=== PATIENT | male | born 1950 | race Caucasian/White ===

== ENCOUNTER 2018-07-08 15:29 | Observation (INO) ==
[2018-07-08 16:18] LABS: Basophils # (Auto) 0 K/mcL (0.0-0.3); Basophils % (Auto) 0.6 % (0.0-2.0); Eosinophils # (Auto) 0.2 K/mcL (0.0-0.7); Eosinophils % (Auto) 3.3 % (0.0-7.0); Granulocytes % (Auto) 61.9 % (38.0-78.0); Hematocrit 39.4 % (41.0-55.0); Hemoglobin 13.1 g/dL (13.5-16.5); Lymphocytes # (Auto) 1.9 K/mcL (1.5-4.8); Mean Cell Volume 86.3 fL (80.0-100.0); Mean Corpuscular HGB Conc 33.1 g/dL (31.0-36.0); Mean Platelet Volume 7.4 fL (7.4-10.4); Monocytes # (Auto) 0.6 K/mcL (0.1-0.9); Monocytes % (Auto) 8.2 % (1.0-12.0); Platelet Count 310 K/mcL (140-440); RBC 4.57 M/mcL (4.50-5.90); Red Cell Distribution Width 15.7 % (11.5-14.5); WBC 7.4 K/mcL (4.5-11.0)
[2018-07-08 16:37] LABS: ALT/SGPT 9 U/l (0-40); AST/SGOT 12 U/l (0-37); Albumin 3.7 gm/dL (3.2-5.2); Albumin/Globulin Ratio 1.2 (1.0-2.3); Alkaline Phosphatase 116 U/L (39-117); Bilirubin,Total 0.5 mg/dL (0.0-1.0); Blood Urea Nitrogen 10 mg/dl (8-23); Calcium 8.9 mg/dl (8.6-10.4); Carbon Dioxide 27 mmol/L (22-30); Chloride 103 mmol/L (96-108); Globulin 3.2 gm/dL (2.2-3.7); Glomerular Filtration Rate 89; Glucose 103 mg/dL (70-105); Potassium 3.7 mmol/L (3.3-5.1); Sodium 140 mmol/L (133-145)
[2018-07-08 16:57] LABS: Erythrocyte Sedimentation Rate 30 mm/hr (0-15)
[2018-07-08] MEDS ORDERED: HYDROcodone/APAP 10/325MG TABLET PO ONE ×2 (17:09→17:26)
--- NOTE | 2018-07-08 18:47 | Emergency Department Note ---
Lower Extremity Injury HPI - General Chief Complaint: Extremity Injury, Lower Stated Complaint: Right Eye Pain, RLE Cellulitis Time Seen by Provider: 07/08/18 15:33 Source: patient Mode of arrival: ambulatory Limitations: no limitations - History of Present Illness HPI Narrative: This pleasant rather tall and large 68-year-old gentleman comes e mergency room with his because of concern of a sore on his right heel, possible cellulitis of his right lower extremity. He has been in wound care for a lesion that was excised near the base of his second toe. It had to be opened and then sutures were applied. He has been on some rather significant direct tight bandages which seemed to calm upon removal demonstrate purple and pink skin above the ankle and a new heel lesion. remove the wrap I believe just today. She has been home since after having gone to out of town. Patient describes having numbness of his foot but denies any specific injury or trauma or break of the skin that he is aware of for cause for his heel ulcer. As he was coming here there was a concern of some slurred speech. He also describes some pain in his right cheek radiating to behind his right eye. There is been no fevers or sweats but some mild chills. REVIEW OF SYSTEMS: Denies chest pain Denies cough, shortness of breath No abdominal pain, nausea, vomiting, diarrhea. Some constipation. No dysuria. Has had some dribbling. Some incontinence. No back pain No headaches, weakness, dizziness No anxiety but has had some depression admittedly and related to his health including his below-knee amputation on the left. - Related Data Home Medications Medication Instructions Recorded Confirmed bupropion HCl XL 150 mg 24 hr 150 mg PO BID tab 08/03/14 05/31/18 tablet, extended release hydrocodone-acetaminophen 10 - 325 mg PO PRN PRN 08/03/14 05/31/18 multivitamins 1 tab PO QDAY 08/03/14 05/31/18 simvastatin 10 mg tablet 10 mg PO HS tab 08/03/14 05/31/18 etodolac 400 mg tablet 400 mg PO BID 08/02/15 05/31/18 ipratropium bromide 0.03 % nasal 2 spray INTRANASAL BID-TID PRN 08/02/15 05/31/18 spray metoprolol tartrate 25 mg tablet 12.5 mg PO DAILY tab 08/02/15 05/31/18 potassium chloride ER 10 mEq 20 meq PO BID cap 08/02/15 05/31/18 capsule,extended release Gabapentin [Neurontin] 300 mg PO TID 02/02/16 05/31/18 cholecalciferol (vitamin D3) 50,000 unit PO .2XW tab 02/02/16 05/31/18 50,000 unit tablet fish, borage, flaxseed oils-omega 1 cap PO BID cap 02/02/16 05/31/18 3,6,9 comb no.1 1,200 mg capsule furosemide 80 mg tablet 160 mg PO BID tab 02/02/16 05/31/18 ofloxacin 0.3 % eye drops 2 drp OPHTHALMIC QID 7 Days #5 ml 02/02/16 05/31/18 tizanidine 4 mg capsule 4 mg PO BID cap 02/02/16 05/31/18 aspirin 325 mg tablet 325 mg PO DAILY 03/28/17 05/31/18 pramipexole 0.125 mg tablet 0.125 mg PO .daily tab 04/01/18 05/31/18 pramipexole 0.5 mg tablet 0.5 mg PO QHS 04/01/18 05/31/18 DULoxetine [Cymbalta] 30 mg PO DAILY 05/28/18 05/31/18 Finasteride [Proscar] 5 mg PO DAILY 05/28/18 05/31/18 Metolazone [Zaroxolyn] 2.5 mg PO DAILY 05/28/18 05/31/18 Tamsulosin HCl [Flomax] 0.8 mg PO DAILY 05/28/18 05/31/18 Previous Rx's Medication Instructions Recorded oxybutynin chloride ER 15 mg 15 mg PO BID #60 tab 04/01/18 tablet,extended release 24 hr Allergies Allergy/AdvReac Type Severity Reaction Status Date / Time Cefprozil [From Cefzil] AdvReac Mild Diarrhea Verified 05/30/18 10:32 pregabalin [From Lyrica] AdvReac Mild swelling Verified 05/28/18 16:02 of hands and feet sertraline [From Zoloft] AdvReac Mild swelling Verified 05/28/18 16:02 of hands and feet Past Medical History - Past Medical History PMFSH Narrative: Medical History (Last Updated 07/08/18 @ 18:51 by Keo Jose DO) Dysmetabolic syndrome X (Chronic) Multiple sclerosis (Chronic) Hyperlipidemia (Chronic) Urge incontinence (Chronic) Ureteral calculus (Resolved) Tabes dorsalis (Chronic) Osteoarthrosis (Chronic) Neuropathy (Chronic) Neurogenic bladder (Chronic) Kidney stones (Chronic) Hearing loss (Chronic) Cannabis abuse (Chronic) BPH without obstruction/lower urinary tract symptoms (Chronic) Hemorrhoids, internal (Resolved) Lipoma of skin and subcutaneous tissue of face (Resolved) Nocturia (Resolved) Shortness of breath (Resolved) Skin benign neoplasm (Resolved) Past Surgical History (Last Updated 07/08/18 @ 18:55 by Keo Jose DO) History of below knee amputation (Acute) Hx of cataract surgery (Acute) History of foot surgery (Resolved) History of hip surgery (Resolved) Hx of adenoidectomy (Resolved) Hx of colonoscopy (Resolved) Hx of knee surgery (Resolved) Hx of tonsillectomy (Resolved) Family History (Last Reviewed 04/01/18 @ 13:24 by Shannan Linn RN) father Secondary malignant neoplasm of bone Diabetes mellitus Carcinoma in situ of skin sister Malignant neoplasm of breast grandmother (paternal) Diabetes mellitus - Social History smoking status: Former smoker Physical Exam Limitations: no limitations Course Vital Signs Temperature 99.9 F H 07/08/18 15:31 Pulse Rate 86 07/08/18 15:31 Respiratory Rate 20 07/08/18 15:31 Blood Pressure 145/80 07/08/18 15:31 Pulse Oximetry (%) 93 07/08/18 15:31 Temperature 99.9 F H 07/08/18 15:31 Pulse Rate 63 07/08/18 19:16 Respiratory Rate 17 07/08/18 19:16 Blood Pressure 142/73 07/08/18 19:16 Pulse Oximetry (%) 88 L 07/08/18 19:16 Extremity Injury, Lower - Medical Records Medical records reviewed: Yes I reviewed the patient's medical records. - Lab Data Lab results reviewed: Yes I reviewed the patient's lab results. Result diagrams: 07/08/18 15:48 07/08/18 15:48 Lab Results 07/08/18 07/08/18 07/08/18 Range/Units 15:48 15:48 15:48 WBC 7.4 (4.5-11.0) K/mcL RBC 4.57 (4.50-5.90) M/mcL Hgb 13.1 L (13.5-16.5) g/dL Hct 39.4 L (41.0-55.0) % MCV 86.3 (80.0-100.0) fL MCH 28.6 (26.0-34.0) pg MCHC 33.1 (31.0-36.0) g/dL RDW 15.7 H (11.5-14.5) % Plt Count 310 (140-440) K/mcL MPV 7.4 (7.4-10.4) fL Gran % 61.9 (38.0-78.0) % Lymph % (Auto) 26.0 (15.5-49.0) % Garfield % (Auto) 8.2 (1.0-12.0) % Eos % (Auto) 3.3 (0.0-7.0) % Baso % (Auto) 0.6 (0.0-2.0) % Gran # 4.5 (1.8-8.0) K/mcL Lymph # (Auto) 1.9 (1.5-4.8) K/mcL Garfield # (Auto) 0.6 (0.1-0.9) K/mcL Eos # (Auto) 0.2 (0.0-0.7) K/mcL Baso # (Auto) 0 (0.0-0.3) K/mcL ESR 30 H (0-15) mm/hr VBG Lactic Acid 1.1 (0.5-2.0) mmol/L Sodium 140 (133-145) mmol/L Potassium 3.7 (3.3-5.1) mmol/L Chloride 103 (96-108) mmol/L Carbon Dioxide 27 (22-30) mmol/L Anion Gap 10.0 (8-16) BUN 10 (8-23) mg/dl Creatinine 0.9 (0.7-1.2) mg/dl GFR Calculation 89 Glucose 103 (70-105) mg/dL Calcium 8.9 (8.6-10.4) mg/dl Total Bilirubin 0.5 (0.0-1.0) mg/dL AST 12 (0-37) U/l ALT 9 (0-40) U/l Alkaline Phosphatase 116 (39-117) U/L C-Reactive Protein 3.0 H (0.0-0.8) mg/dl Total Protein 6.9 (5.9-8.4) gm/dL Albumin 3.7 (3.2-5.2) gm/dL Globulin 3.2 (2.2-3.7) gm/dL Albumin/Globulin Ratio 1.2 (1.0-2.3) Disposition Pt seen by [facility]/PA only: No Clinical Impression: Impaired ambulation Foot ulcer, right Qualifiers: Non-pressure ulcer stage: limited to breakdown of skin Qualified Code(s): L97.511 - Non-pressure chronic ulcer of other part of right foot limited to breakdown of skin Cellulitis Qualifiers: Site of cellulitis: extremity Site of cellulitis of extremity: lower extremity Laterality: right Qualified Code(s): L03.115 - Cellulitis of right lower limb S/P BKA (below knee amputation) Qualifiers: Laterality: left Qualified Code(s): Z89.512 - Acquired absence of left leg below knee Fever Qualifiers: Fever type: due to other condition Qualified Code(s): R50.81 - Fever presenting with conditions classified elsewhere Summary: See above. Patient's concern and 's concern is previously rapid progress and of cellulitis into osteomyelitis and fairly quick amputation on the left. He now has an ulcer on the heel on the right making it difficult for him to bear weight if he is following instructions from wound care and that she is unable to do major assistance to him because of his large size and weight at 370 pounds and 6 foot 6, no electric wheelchair, etc. Patient does not have a deep-seated infection at this point in time that is visible or observable. IV antibiotics while making additional arrangements to facilitate home care and/or approve IV or p.o. antibiotics is reasonable. ADDITIONAL NOTE IS THAT PATIENT'S TEMPERATURE IS 99.9 DEGREES INITIALLY HERE. THIS WAS AN OVERSIGHT INITIALLY. Antibiotics were discussed with Dr. Donahue, with going ahead with vancomycin and ceftriaxone, and who kindly accepts care of this patient. Disposition: Xfer As Outpt/Obs ([facility]) Condition: Fair Referrals: Ramonita Fitch MD [Primary Care Provider] -
[2018-07-08] MEDS ORDERED: cefTRIAXone 2 GM in DEXTROSE 5% IN WATER 50 ML IV ONE (19:35)
[2018-07-08] MEDS ORDERED: VANCOMYCIN 1,000 MG in 0.9 % SODIUM CHLORIDE 250 ML IV ONE (19:35)
[2018-07-08] MEDS ORDERED: cefTRIAXone 1 GM VIAL IV ONE (20:07)
[2018-07-08] MEDS ORDERED: MAGNESIUM SULFATE 2 GM/50 ML BAG IV PRN (20:23)
[2018-07-08] MEDS ORDERED: ONDANSETRON 4 MG/2 ML VIAL IV PRN (20:23)
[2018-07-08] MEDS ORDERED: traZODone HCL 50 MG TABLET PO PRN (20:23)
[2018-07-08] MEDS ORDERED: VANCOMYCIN PER PHARMACY IV SCH (20:23)
[2018-07-08] MEDS ORDERED: POTASSIUM CHLORIDE 20 MEQ PACKET PO PRN (20:23)
[2018-07-08] MEDS ORDERED: ACETAMINOPHEN 325 MG TABLET PO PRN (20:23)
[2018-07-08] MEDS ORDERED: MAGNESIUM HYDROXIDE 30 ML ORAL.SUSP PO PRN (20:23)
--- NOTE | 2018-07-08 20:53 | Internal Med History&Physical ---
Medical - H&P: [facility] Patient information: Note initiated : 07/08/18 at 8:48 pm Service Date, if different from initiated Date: [] Patient: Reji Stapleton 68 y/o M admitted on 07/08/18 for Right Eye Pain, RLE Cellulitis. Chief Complaint: [] Chief complaint: right heel ulceration/foot redness History of present illness: Mr. Stapleton is a 68 year old M morbidly obese with history of obstructive sleep apnea/prior left BKA who presents to ER with worsening redness along with ulceration right heel. Patient recently had a lipoma lesion excision around right second toe and has been wearing a compressive dressing. Following removal of dressing he noticed ulceration along with it is blistering area with purplish discoloration around the heel extending to dorsum of the foot. With increasing concerns he came to the ER. Initial workup was consistent with heel ulcer/early cellulitis Hospitalist service was consulted for admission. However this no fever or leukocytosis. Patient's is disabled and patient has extreme difficulty ambulating in the context of left BKA and right heel ulceration and therefore ER physician felt it was unsafe to discharge home on antibiotics. At the time of evaluation patient is alert oriented. He denies fever, shaking chills, diarrhea, dysuria. Endorses to right perioperative burning pain similar to multiple episodes in the past. Denies recent trauma. Endorses to chronic pain but denies localized pain but endorses to swelling and redness. Patient denies any recent MS flares. He is due to see his neurologist Maria Isabel Keys next month. Review of systems 10 point review of systems performed and is negative except for ones discussed wing strange Medical - H&P: PM Medical history: Urge incontinence (Acute) 02/09/2014 Ureteral calculus (Acute) 02/09/2014 Tabes dorsalis (Acute) Skin benign neoplasm (Acute) Shortness of breath (Acute) Osteoarthrosis (Acute) Nocturia (Acute) 02/09/2014 Neuropathy (Acute) Neurogenic bladder (Acute) Multiple sclerosis (Acute) Lipoma of skin and subcutaneous tissue of face (Acute) Kidney stones (Acute) Hyperlipidemia (Acute) Hemorrhoids, internal (Acute) Hearing loss (Acute) Dysmetabolic syndrome X (Acute) Cannabis abuse (Acute) BPH without obstruction/lower urinary tract symptoms (Acute) Surgical History Hx of tonsillectomy (Acute) Hx of knee surgery (Acute) History of hip surgery (Acute) 10/04/2013 Hx of colonoscopy (Acute) 2003 History of foot surgery (Acute) ankle repair Hx of adenoidectomy (Acute) History of below knee amputation (Acute) Left Hx of cataract surgery (Acute) bilateral Family History father Secondary malignant neoplasm of bone Diabetes mellitus Carcinoma in situ of skin sister Malignant neoplasm of breast grandmother (paternal) Diabetes mellitus Social History smoking status: Former smoker alcohol intake frequency: holiday/special occasion only substance use type: does not use, marijuana Surgical history: Medical - H&P: Meds Home Medications Medication Instructions Recorded Confirmed Type HYDROcodone/APAP 10/325MG [[place] 1 - 2 tab PO Q8HP PRN 08/03/14 07/09/18 History 10-325Mg] bupropion HCl XL 150 mg 24 hr 150 mg PO BID tab 08/03/14 07/08/18 History tablet, extended release multivitamins 1 tab PO QDAY 08/03/14 07/08/18 History simvastatin 10 mg tablet 10 mg PO HS tab 08/03/14 07/08/18 History etodolac 400 mg tablet 400 mg PO BID 08/02/15 07/08/18 History metoprolol tartrate 25 mg tablet 12.5 mg PO DAILY tab 08/02/15 07/08/18 History potassium chloride ER 10 mEq 20 meq PO BID@08,12 cap 08/02/15 07/09/18 History capsule,extended release Gabapentin [Neurontin] 300 mg PO TID 02/02/16 07/08/18 History cholecalciferol (vitamin D3) 50,000 unit PO .2XW tab 02/02/16 07/08/18 History 50,000 unit tablet fish, borage, flaxseed oils-omega 1 cap PO BID cap 02/02/16 07/08/18 History 3,6,9 comb no.1 1,200 mg capsule furosemide 80 mg tablet 160 mg PO BID@08,12 tab 02/02/16 07/09/18 History ofloxacin 0.3 % eye drops 2 drp OPHTHALMIC QIDP PRN 7 Days 02/02/16 07/08/18 History #5 ml tizanidine 4 mg capsule 4 mg PO BID cap 02/02/16 07/08/18 History aspirin 325 mg tablet 325 mg PO DAILY 02/14/18 05/27/19 History oxybutynin chloride ER 15 mg 15 mg PO BID #60 tab 04/01/18 07/08/18 Rx tablet,extended release 24 hr pramipexole 0.125 mg tablet 0.125 mg PO DAILY tab 04/01/18 07/08/18 History pramipexole 0.5 mg tablet 0.5 mg PO QHS 04/01/18 07/08/18 History DULoxetine [Cymbalta] 30 mg PO BID 05/28/18 07/08/18 History Finasteride [Proscar] 5 mg PO HS 05/28/18 07/08/18 History Metolazone [Zaroxolyn] 2.5 mg PO DAILYP PRN 05/28/18 07/08/18 History Tamsulosin HCl [Flomax] 0.8 mg PO HS 05/28/18 07/08/18 History Glucosamn/[place]n/C/Mn/[place] 1 each PO BID 07/08/18 07/08/18 History [[facility] Glucosamine Chondroit C[facility]] Allergies Allergy/AdvReac Type Severity Reaction Status Date / Time Cefprozil [From Cefzil] AdvReac Mild Diarrhea Verified 05/30/18 10:32 pregabalin [From Lyrica] AdvReac Mild swelling Verified 05/28/18 16:02 of hands and feet sertraline [From Zoloft] AdvReac Mild swelling Verified 05/28/18 16:02 of hands and feet Medical - H&P: Exam - Constitutional Vitals: Temp Pulse Resp BP Pulse Ox 99.9 F H 71 15 149/78 91 07/08/18 15:31 07/08/18 20:15 07/08/18 20:15 07/08/18 20:01 07/08/18 20:15 General appearance: morbidly obese, no acute distress Exam: Alert oriented Abdomen normocephalic Nose or icterus Oral cavity dry No ear discharge Negative lymphadenopathy S1 and S2 regular rhythm Diminished breath sounds bases Abdomen soft nontender tenderness Left BKA, right foot/ankle: Dressing Skin no suspicious lesion Psych alert cooperative Neuro nonfocal Medical - H&P: Reslt - Labs CBC & Chem 7: 07/09/18 04:45 07/09/18 04:45 Labs: Short CBC 07/08/18 Range/Units 15:48 WBC 7.4 (4.5-11.0) K/mcL Hgb 13.1 L (13.5-16.5) g/dL Hct 39.4 L (41.0-55.0) % Plt Count 310 (140-440) K/mcL BMP 07/08/18 15:48 Sodium 140 Potassium 3.7 Chloride 103 Carbon Dioxide 27 BUN 10 Creatinine 0.9 Glucose 103 Calcium 8.9 Liver Function 07/08/18 Range/Units 15:48 Total Bilirubin 0.5 (0.0-1.0) mg/dL AST 12 (0-37) U/l ALT 9 (0-40) U/l Alkaline Phosphatase 116 (39-117) U/L Albumin 3.7 (3.2-5.2) gm/dL Medical - H&P: A/P (1) Ulcer of right heel Current visit: Yes Status: Acute * Right heel ulcer cellulitis-antibiotic coverage, wound care consult, cultures. Observation admit * History of hypertension continue metoprolol * Neuropathy continue gabapentin * History of obstructive sleep apnea continue home CPAP * History of CHF continue metoprolol/metolazone/Lasix * History of MS-continued Zanaflex/hydrocodone. Patient follows up with Dr. Maria Isabel Keys neurology at [facility]. * Anxiety disorder continue duloxetine/bupropion * BPH continue finasteride/tamsulosin * Hyperlipidemia on statin * Full code * Prophylaxis heparin Plan * Observation admit * Antibiotic coverage * Wound care consult * Pre-existing medical condition management as above
[2018-07-08] MEDS: cefTRIAXone 2 GM in DEXTROSE 5% IN WATER 50 ML IV SCH (21:58)
[2018-07-08] MEDS ORDERED: METOLAZONE 2.5 MG TABLET PO PRN (22:05)
[2018-07-08] MEDS ORDERED: OFLOXACIN OPHTHALMIC PRN (22:05)
[2018-07-08] MEDS ORDERED: PRAMIPEXOLE 0.25 MG TABLET PO SCH (22:15)
[2018-07-08] MEDS ORDERED: HEPARIN 5,000 UNIT/ML VIAL ONE (22:36)
[2018-07-08] MEDS: HEPARIN 5,000 UNIT/ML VIAL SQ SCH (22:47)
[2018-07-08] MEDS ORDERED: GABAPENTIN 300 MG CAPSULE ONE (23:24)
[2018-07-08] MEDS: TAMSULOSIN 0.4 MG CAPSULE PO SCH (23:43)
[2018-07-08] MEDS: FINASTERIDE 5 MG TABLET PO SCH (23:44)
[2018-07-08] MEDS: SENNOSIDES/DOCUSATE SODIUM 1 TAB TABLET PO SCH (23:46)
[2018-07-08] MEDS: 0.9 % SODIUM CHLORIDE 10 ML SYRINGE IV SCH (23:46)
[2018-07-08] MEDS: DOCUSATE SODIUM 100 MG CAPSULE PO SCH (23:46)
[2018-07-09] MEDS ORDERED: HYDROcodone/APAP 10/325MG TABLET PO ONE (04:12)
[2018-07-09] MEDS ORDERED: GABAPENTIN 300 MG CAPSULE PO ONE (04:52)
[2018-07-09] MEDS ORDERED: GABAPENTIN 300 MG CAPSULE ONE (05:01)
[2018-07-09] MEDS: 0.9 % SODIUM CHLORIDE 10 ML SYRINGE IV SCH ×3 (05:04→20:26)
[2018-07-09 06:50] LABS: Hematocrit 36.7 % (41.0-55.0); Hemoglobin 12.4 g/dL (13.5-16.5); Mean Cell Volume 88.9 fL (80.0-100.0); Mean Corpuscular HGB Conc 33.8 g/dL (31.0-36.0); Mean Platelet Volume 7.9 fL (7.4-10.4); Platelet Count 297 K/mcL (140-440); RBC 4.13 M/mcL (4.50-5.90); Red Cell Distribution Width 16.2 % (11.5-14.5)
[2018-07-09 07:11] LABS: ALT/SGPT 9 U/l (0-40); AST/SGOT 12 U/l (0-37); Albumin 3.6 gm/dL (3.2-5.2); Albumin/Globulin Ratio 1.2 (1.0-2.3); Alkaline Phosphatase 103 U/L (39-117); Bilirubin,Direct < 0.2 mg/dL (0.0-0.3); Bilirubin,Total 0.4 mg/dL (0.0-1.0); Blood Urea Nitrogen 9 mg/dl (8-23); Calcium 8.5 mg/dl (8.6-10.4); Carbon Dioxide 26 mmol/L (22-30); Chloride 105 mmol/L (96-108); Glomerular Filtration Rate 89; Glucose 105 mg/dL (70-105); Lactate Dehydrogenase 149 U/L (94-250); Magnesium 2.2 mg/dL (1.6-2.5); Phosphorous 3.7 mg/dL (2.7-4.5); Potassium 3.8 mmol/L (3.3-5.1); Sodium 143 mmol/L (133-145); Triglycerides 175 mg/dl (<150); Uric Acid 5.6 mg/dL (2.5-8.0)
[2018-07-09] MEDS: GABAPENTIN 300 MG CAPSULE PO SCH ×2 (07:41→14:49)
[2018-07-09] MEDS: FUROSEMIDE 80 MG TABLET PO SCH ×2 (07:41→12:19)
[2018-07-09] MEDS: POTASSIUM CHLORIDE 20 MEQ TABLET PO SCH ×2 (07:41→12:19)
[2018-07-09] MEDS: HYDROcodone/APAP 10/325MG TABLET PO PRN ×3 (07:41→23:11)
[2018-07-09 08:03] LABS: Anisocytosis 1+ (NONE SEEN); Band Neutrophils % 1 % (0-10); Eosinophils % (Manual) 3 % (0-7); Lymphocytes % 38 % (15-49); Monocytes % (Manual) 4 % (1-12); Platelet Estimate NORMAL (NORMAL); RBC Morphology ABNORM (NORMAL); Segmented Neutrophils % 54 % (38-78); Smudge Cells 1+ (NONE SEEN)
--- NOTE | 2018-07-09 08:57 | XRay Report ---
HISTORY: Skin ulceration under the heel FINDINGS: There is a relatively subtle ulceration of the skin inferior to the calcaneus. The adjacent calcaneus appears normal without radiographic evidence of osteomyelitis. There is a subacute partially healed fracture in the proximal phalanx of the fifth toe. Patient has generalized osteoporosis throughout the foot. There is generalized soft tissue swelling around the foot and ankle. Large heterotopic calcifications are seen anterior to the ankle and above the neck of the talus. IMPRESSION: Skin ulceration on the heel, without evidence of osteomyelitis. Healing fracture in the proximal phalanx of the fifth toe Interpreted and Authenticated by: Grady Macias 07/09/18
[2018-07-09] MEDS ORDERED: GABAPENTIN 300 MG CAPSULE PO SCH ×2 (09:00→21:00)
[2018-07-09] MEDS ORDERED: PRAMIPEXOLE 0.25 MG TABLET PO SCH (09:00)
[2018-07-09] MEDS ORDERED: TIZANIDINE HCL 4 MG PO SCH (09:00)
[2018-07-09] MEDS ORDERED: OXYBUTYNIN CHLORIDE PO SCH (09:00)
[2018-07-09] MEDS ORDERED: ETODOLAC 400 MG TABLET PO SCH (09:00)
[2018-07-09] MEDS: DULoxetine 30 MG CAPSULE PO SCH ×2 (09:09→20:27)
[2018-07-09] MEDS: MULTIVIT,THER IRON,CA,FA & MIN 1 TABLET PO SCH ×2 (09:09→09:13)
[2018-07-09] MEDS: OXYBUTYNIN CHLORIDE 5 MG TAB.XL.24H PO SCH ×2 (09:10→20:27)
[2018-07-09] MEDS: FISH OIL 1,000 MG CAPSULE PO SCH ×2 (09:10→23:37)
[2018-07-09] MEDS: METOPROLOL TARTRATE 25 MG TABLET PO SCH (09:10)
[2018-07-09] MEDS: buPROPion 150 MG TAB.XL.24H PO SCH ×2 (09:11→20:28)
[2018-07-09] MEDS: ASPIRIN 325 MG ENTERIC COATED TABLET PO SCH (09:11)
[2018-07-09] MEDS: GLUCOSAMINE/CHONDROITIN SULF A 1 CAP CAPSULE PO SCH ×2 (09:11→20:27)
[2018-07-09] MEDS: HEPARIN 5,000 UNIT/ML VIAL SQ SCH ×2 (09:11→20:27)
[2018-07-09] MEDS: tiZANidine 4 MG TABLET PO SCH ×2 (09:11→20:27)
[2018-07-09] MEDS: DOCUSATE SODIUM 100 MG CAPSULE PO SCH ×2 (09:12→20:28)
[2018-07-09 10:47] LABS: Gamma Glutamyl Transpeptidase 15 U/L (8-61)
--- NOTE | 2018-07-09 13:18 | Internal Med Progress Note ---
Medical - PN: Subj Patient information: Note initiated : 07/09/18 at 1:15 pm Service Date, if different from initiated Date: [] Patient: Reji Stapleton 68 y/o M admitted on 07/08/18 for Right Eye Pain, RLE Cellulitis. Chief Complaint: [] Interval history: Mr. Stapleton is a 68 year old M morbidly obese with history of obstructive sleep apnea/prior left BKA who presents to ER with worsening redness along with ulceration right heel. Patient recently had a lipoma lesion excision around right second toe and has been wearing a compressive dressing. Following removal of dressing he noticed ulceration along with it is blistering area with purplish discoloration around the heel extending to dorsum of the foot. With increasing concerns he came to the ER. Initial workup was consistent with heel ulcer/early cellulitis Hospitalist service was consulted for admission. However this no fever or leukocytosis. Patient's is disabled and patient has extreme difficulty ambulating in the context of left BKA and right heel ulceration and therefore ER physician felt it was unsafe to discharge home on antibiotics. At the time of evaluation patient is alert oriented. He denies fever, shaking chills, diarrhea, dysuria. Endorses to right perioperative burning pain similar to multiple episodes in the past. Denies recent trauma. Endorses to chronic pain but denies localized pain but endorses to swelling and redness. Patient denies any recent MS flares. He is due to see his neurologist Maria Isabel Keys next month. 07/09-patient doing better. Ongoing wound care. Case management coordinating safe discharge plan. Perioperative pain improving. Patient endorses that symptoms are similar to usual episodes of burning pain that has been occurring over the last 3 months. Denies visual changes/blurred vision/floaters. Recommend outpatient follow-up with ophthalmology on discharge. Patient will fo llow-up with neurology for his MS next month. - Constitutional Vitals: Vital Signs Temp Pulse Resp BP Pulse Ox 98.0 F 82 20 128/68 90 07/09/18 06:42 07/09/18 06:42 07/09/18 06:42 07/09/18 06:42 07/09/18 06:42 Period Temp Pulse Resp BP Sys/Castillo Pulse Ox Last 24 Hr 96.9 F-99.9 F 60-87 8-22 124-154/68-90 85-93 Intake and Output 07/08/18 07/09/18 07/09/18 21:59 05:59 13:59 Intake Total 240 1440 Output Total 575 Balance -335 1440 Weight 358 lb 8 oz Intake & Output: Intake & Output 07/08/18 07/09/18 07/09/18 21:59 05:59 13:59 Intake Total 240 1440 Output Total 575 Balance -335 1440 Weight 358 lb 8 oz Intake: Oral 240 1440 Output: Void Amount 575 Other: Meal Dinner Breakfast Percent of Meal Consumed 100% 100% Feeding Ability Independent Urine Appearance Clear Urine Color Light Justa General appearance: no acute distress Exam: Alert oriented Nonlabored breathing No sclerae icterus/conjunctival erythema or vision changes Regular rate and rhythm Right heel dressing Medical - PN: Obj Da - Labs CBC & Chem 7: 07/09/18 04:45 07/09/18 04:45 Labs: Abnormal Lab Results 07/09/18 07/09/18 07/08/18 04:45 04:45 15:48 RBC 4.13 L Hgb 12.4 L Hct 36.7 L RDW 16.2 H WBC Morphology Abnorm A Smudge Cells 1+ A RBC Morphology Abnorm A Anisocytosis 1+ A ESR Calcium 8.5 L C-Reactive Protein 3.0 H Triglycerides 175 H 07/08/18 15:48 RBC Hgb 13.1 L Hct 39.4 L RDW 15.7 H WBC Morphology Smudge Cells RBC Morphology Anisocytosis ESR 30 H Calcium C-Reactive Protein Triglycerides Meds: Medications Acetaminophen (Tylenol) 650 mg PO Q4-6HP PRN PRN Reason: PAIN/FEVER > 101 Hydrocodone Bitart/Acetaminophen ([place] 10/325mg) 1 - 2 tab PO Q8HP PRN PRN Reason: Pain Last Admin: 07/09/18 07:41 Dose: 2 tab Documented by: Aspirin (Ecotrin) 325 mg PO DAILY [facility] Last Admin: 07/09/18 09:11 Dose: 325 mg Documented by: Bupropion HCl (Wellbutrin Xl) 150 mg PO BID [facility] Last Admin: 07/09/18 09:11 Dose: 150 mg Documented by: Docusate Sodium (Colace) 100 mg PO BID [facility] Last Admin: 07/09/18 09:12 Dose: 100 mg Documented by: Duloxetine HCl (Cymbalta) 30 mg PO BID [facility] Last Admin: 07/09/18 09:09 Dose: 30 mg Documented by: Etodolac (Lodine) 400 mg PO BID [facility] Last Admin: 07/09/18 09:12 Dose: Not Given Documented by: Finasteride (Proscar) 5 mg PO [facility] Last Admin: 07/08/18 23:44 Dose: 5 mg Documented by: Fish Oil (Fish Oil) 1 mg PO BID [facility] Last Admin: 07/09/18 09:10 Dose: 1 mg Documented by: Furosemide (Lasix) 160 mg PO BID@0800,1200 [facility] Last Admin: 07/09/18 12:19 Dose: 160 mg Documented by: Gabapentin (Neurontin) 300 mg PO BID@0800,1500 [facility] Last Admin: 07/09/18 07:41 Dose: 300 mg Documented by: Gabapentin (Neurontin) 600 mg PO [facility] Glucosamine/Chondroitin (Glucosamine-Chondroitin Cap) 1 cap PO BID [facility] Last Admin: 07/09/18 09:11 Dose: 1 cap Documented by: Heparin Sodium (Porcine) (Heparin) 5,000 unit SQ Q12 [facility] Last Admin: 07/09/18 09:11 Dose: 5,000 unit Documented by: Ceftriaxone Sodium 2 gm/ (Dextrose) 50 mls @ 100 mls/hr IV Q24H [facility]; Protocol Last Admin: 07/08/18 21:58 Dose: Not Given Documented by: Magnesium Sulfate (Magnesium Sulfate) 2 gm in 50 mls @ 50 mls/hr IV UD PRN PRN Reason: MG = or < 1.7 Iron Carb/Multivit/[place]/Folic Acid (Multivitamin W/Minerals) 1 tab PO DAILY [facility] Last Admin: 07/09/18 09:09 Dose: 1 tab Documented by: Iron Carb/Multivit/[place]/Folic Acid (Multivitamin W/Minerals) 1 tab PO DAILY [facility] Last Admin: 07/09/18 09:13 Dose: 1 tab Documented by: Magnesium Hydroxide (Milk Of Magnesia) 30 ml PO HSP PRN PRN Reason: Constipation Metolazone (Zaroxolyn) 2.5 mg PO DAILYP PRN PRN Reason: Edema Metoprolol Tartrate (Lopressor) 12.5 mg PO DAILY [facility] Last Admin: 07/09/18 09:10 Dose: 12.5 mg Documented by: Non-Formulary Medication (Ofloxacin) 2 drp OPHTHALMIC QIDP PRN PRN Reason: Dry Eye(s) Ondansetron HCl (Zofran) 4 mg IV Q4-6HP PRN PRN Reason: Nausea And Vomiting Oxybutynin Chloride (Ditropan Xl) 15 mg PO BID [facility] Last Admin: 07/09/18 09:10 Dose: 15 mg Documented by: Potassium Chloride (Klor-Con) 40 meq PO DAILYP PRN PRN Reason: K+ < 3.5 Potassium Chloride (Kdur) 20 meq PO BID@0800,1200 [facility] Last Admin: 07/09/18 12:19 Dose: 20 meq Documented by: Pramipexole Dihydrochloride (Mirapex) 0.5 mg PO QHS [facility] Pramipexole Dihydrochloride (Mirapex) 0.125 mg PO DAILY [facility] Last Admin: 07/09/18 09:13 Dose: Not Given Documented by: Senna/Docusate Sodium (Senna Plus Tablet) 1 tab PO [facility] Last Admin: 07/08/18 23:46 Dose: Not Given Documented by: Simvastatin (Zocor) 10 mg PO [facility] Sodium Chloride (Saline Flush) 10 ml IV Q8 [facility] Last Admin: 07/09/18 12:20 Dose: 10 ml Documented by: Tamsulosin HCl (Flomax) 0.8 mg PO [facility] Last Admin: 07/08/18 23:43 Dose: 0.8 mg Documented by: Tizanidine HCl (Zanaflex) 4 mg PO BID [facility] Last Admin: 07/09/18 09:11 Dose: 4 mg Documented by: Trazodone HCl (Desyrel) 50 mg PO HSP PRN PRN Reason: Insomnia Vancomycin HCl (Vancomycin Per Pharmacy) 1 order IV [facility] [place]; Protocol Medical - PN: A/P - Time Spent With Patient Total time spent is greater than 50% in coordination of care (as documented) at patient's floor/unit and/or counseling patient: 25 - 35 minutes (1) Ulcer of right heel Status: Acute Assessment and plan: * Right heel ulcer with early cellulitis-continue wound care/antibiotic coverage, await cultures * History of hypertension stable on home dose metoprolol * Perioperatively neuropathic pain continue gabapentin * History of obstructive sleep apnea continue home CPAP * History of CHF continue metoprolol/metolazone/Lasix * History of MS-continued Zanaflex/hydrocodone. Patient follows up with Dr. Maria Isabel Keys neurology at [facility]. * Anxiety disorder continue duloxetine/bupropion * BPH continue finasteride/tamsulosin * Hyperlipidemia on statin * Full code * Prophylaxis heparin Plan * Antibiotic coverage and de-escalate in 24 hours * Wound care consult * Pre-existing medical condition management as above * Discharge planning per case management * Outpatient neurology/ophthalmology/wound care follow-up on discharge Current Visit: Yes Medical - PN: Qual - VTE Deep Vein Thrombosis/Pulmonary Embolism Present on Admission: No
[2018-07-09] MEDS ORDERED: ETODOLAC 400 MG PO PRN (17:00)
[2018-07-09] MEDS: cefTRIAXone 2 GM in DEXTROSE 5% IN WATER 50 ML IV SCH (20:26)
[2018-07-09] MEDS: SENNOSIDES/DOCUSATE SODIUM 1 TAB TABLET PO SCH (20:28)
[2018-07-09] MEDS: FINASTERIDE 5 MG TABLET PO SCH (20:28)
[2018-07-09] MEDS: TAMSULOSIN 0.4 MG CAPSULE PO SCH (20:28)
[2018-07-09] MEDS ORDERED: SIMVASTATIN 10 MG TABLET PO SCH (21:00)
[2018-07-09] MEDS ORDERED: PRAMIPEXOLE 0.5 MG TABLET PO SCH (21:00)
[2018-07-10 06:13] LABS: Hematocrit 36.7 % (41.0-55.0); Hemoglobin 12.6 g/dL (13.5-16.5); Mean Cell Volume 88.7 fL (80.0-100.0); Mean Corpuscular HGB Conc 34.2 g/dL (31.0-36.0); Mean Platelet Volume 7.6 fL (7.4-10.4); Platelet Count 275 K/mcL (140-440); RBC 4.14 M/mcL (4.50-5.90); Red Cell Distribution Width 15.8 % (11.5-14.5); WBC 7.5 K/mcL (4.5-11.0)
[2018-07-10 06:18] LABS: ALT/SGPT 9 U/l (0-40); AST/SGOT 13 U/l (0-37); Albumin 3.7 gm/dL (3.2-5.2); Albumin/Globulin Ratio 1.2 (1.0-2.3); Alkaline Phosphatase 115 U/L (39-117); Bilirubin,Direct < 0.2 mg/dL (0.0-0.3); Bilirubin,Total 0.3 mg/dL (0.0-1.0); Blood Urea Nitrogen 12 mg/dl (8-23); Calcium 8.9 mg/dl (8.6-10.4); Carbon Dioxide 30 mmol/L (22-30); Chloride 100 mmol/L (96-108); Gamma Glutamyl Transpeptidase 16 U/L (8-61); Glomerular Filtration Rate 70; Glucose 99 mg/dL (70-105); Lactate Dehydrogenase 169 U/L (94-250); Magnesium 2.3 mg/dL (1.6-2.5); Phosphorous 3.9 mg/dL (2.7-4.5); Potassium 3.7 mmol/L (3.3-5.1); Sodium 141 mmol/L (133-145); Triglycerides 165 mg/dl (<150); Uric Acid 6.5 mg/dL (2.5-8.0)
[2018-07-10] MEDS: FUROSEMIDE 80 MG TABLET PO SCH ×2 (07:13→12:10)
[2018-07-10] MEDS: GABAPENTIN 300 MG CAPSULE PO SCH (07:13)
[2018-07-10] MEDS: POTASSIUM CHLORIDE 20 MEQ TABLET PO SCH ×2 (07:14→12:09)
[2018-07-10] MEDS: 0.9 % SODIUM CHLORIDE 10 ML SYRINGE IV SCH (07:14)
[2018-07-10] MEDS: HYDROcodone/APAP 10/325MG TABLET PO PRN (07:28)
[2018-07-10] MEDS: HEPARIN 5,000 UNIT/ML VIAL SQ SCH (08:04)
[2018-07-10] MEDS: buPROPion 150 MG TAB.XL.24H PO SCH (08:04)
[2018-07-10] MEDS: GLUCOSAMINE/CHONDROITIN SULF A 1 CAP CAPSULE PO SCH (08:04)
[2018-07-10] MEDS: METOPROLOL TARTRATE 25 MG TABLET PO SCH (08:04)
[2018-07-10] MEDS: MULTIVIT,THER IRON,CA,FA & MIN 1 TABLET PO SCH ×2 (08:05→08:06)
[2018-07-10] MEDS: OXYBUTYNIN CHLORIDE 5 MG TAB.XL.24H PO SCH (08:05)
[2018-07-10] MEDS: ASPIRIN 325 MG ENTERIC COATED TABLET PO SCH (08:05)
[2018-07-10] MEDS: DULoxetine 30 MG CAPSULE PO SCH (08:05)
[2018-07-10] MEDS: tiZANidine 4 MG TABLET PO SCH (08:05)
[2018-07-10] MEDS: DOCUSATE SODIUM 100 MG CAPSULE PO SCH (08:05)
[2018-07-10 08:32] LABS: Band Neutrophils % 1 % (0-10); Basophils % (Manual) 1 % (0-2); Eosinophils % (Manual) 6 % (0-7); Lymphocytes % 28 % (15-49); Monocytes % (Manual) 4 % (1-12); Platelet Estimate NORMAL (NORMAL); RBC Morphology NORMAL (NORMAL); Segmented Neutrophils % 60 % (38-78)
[2018-07-10] MEDS ORDERED: VANCOMYCIN 1,500 MG in 0.9 % SODIUM CHLORIDE 500 ML IV SCH (10:00)
[2018-07-10] MEDS ORDERED: PRAMIPEXOLE 0.125 MG TABLET PO SCH (12:00)
--- NOTE | 2018-07-10 12:10 | Discharge Summary ---
Medical - DS: Prov Patient information: Note initiated : 07/10/18 at 12:05 pm Service Date, if different from initiated Date: [] Patient: Reji Stapleton 68 y/o M admitted on 07/08/18 for Right Eye Pain, RLE Cellulitis. Chief Complaint: [] Date of admission: 07/08/18 20:18 Discharge date: 07/10/18 Primary care physician: Ramonita Fitch Consults: 07/08/18 Consult to Physician [CONS] Stat Comment: Consulting Provider: Ryan Rodrigues Reason For Exam: Physician to Consult 07/08/18 20:23 Consult to Physician [CONS] Routine Comment: Consulting Provider: Chin Otero Reason For Exam: Physician to Consult Medical - DS: Meds - Discharge Medications Prescriptions: Cephalexin [Keflex] 500 mg PO BID #10 cap Active and Home Medications: Home Medications HYDROcodone/APAP 10/325MG [[place] 10-325Mg] 1 - 2 tab PO Q8HP PRN 08/03/14 [History Confirmed 07/09/18 Last Taken 07/08/18 09:00] bupropion HCl XL 150 mg 24 hr tablet, extended release 150 mg PO BID tab 08/03/14 [History Confirmed 07/08/18 Last Taken 07/08/18 07:00] multivitamins 1 tab PO QDAY 08/03/14 [History Confirmed 07/08/18 Last Taken 07/08/18 07:00] simvastatin 10 mg tablet 10 mg PO HS tab 08/03/14 [History Confirmed 07/08/18 Last Taken 07/07/18 21:00] etodolac 400 mg tablet 400 mg PO BID 08/02/15 [History Confirmed 07/08/18 Last Taken 07/08/18 07:00] metoprolol tartrate 25 mg tablet 12.5 mg PO DAILY tab 08/02/15 [History Confirmed 07/08/18 Last Taken 07/08/18 07:00] potassium chloride ER 10 mEq capsule,extended release 20 meq PO BID@08,12 cap 08/02/15 [History Confirmed 07/09/18 Last Taken 07/08/18 07:00] Gabapentin [Neurontin] 300 mg PO TID 02/02/16 [History Confirmed 07/08/18 Last Taken 07/08/18 07:00] cholecalciferol (vitamin D3) 50,000 unit tablet 50,000 unit PO .2XW tab 02/02/16 [History Confirmed 07/08/18 Last Taken 07/08/18 07:00] fish, borage, flaxseed oils-omega 3,6,9 comb no.1 1,200 mg capsule 1 cap PO BID cap 02/02/16 [History Confirmed 07/08/18 Last Taken 07/08/18 07:00] furosemide 80 mg tablet 160 mg PO BID@08,12 tab 02/02/16 [History Confirmed 07/09/18 Last Taken 07/08/18 07:00] ofloxacin 0.3 % eye drops 2 drp OPHTHALMIC QIDP PRN 7 Days #5 ml 02/02/16 [History Confirmed 07/08/18 Last Taken 1 Week Ago ~07/01/18] tizanidine 4 mg capsule 4 mg PO BID cap 02/02/16 [History Confirmed 07/08/18 Last Taken 07/08/18 07:00] aspirin 325 mg tablet 325 mg PO DAILY 03/28/17 [History Confirmed 07/08/18 Last Taken 07/08/18 07:00] oxybutynin chloride ER 15 mg tablet,extended release 24 hr 15 mg PO BID #60 tab 04/01/18 [Rx Confirmed 07/08/18 Last Taken 07/08/18 07:00] pramipexole 0.125 mg tablet 0.125 mg PO DAILY tab 04/01/18 [History Confirmed 07/08/18 Last Taken 07/08/18 07:00] pramipexole 0.5 mg tablet 0.5 mg PO QHS 04/01/18 [History Confirmed 07/08/18 Last Taken 07/07/18 20:00] DULoxetine [Cymbalta] 30 mg PO BID 05/28/18 [History Confirmed 07/08/18 Last Taken 07/08/18 07:00] Finasteride [Proscar] 5 mg PO HS 05/28/18 [History Confirmed 07/08/18 Last Taken 07/07/18 20:00] Metolazone [Zaroxolyn] 2.5 mg PO DAILYP PRN 05/28/18 [History Confirmed 07/08/18 Last Taken 1 Week Ago ~07/01/18] Tamsulosin HCl [Flomax] 0.8 mg PO HS 05/28/18 [History Confirmed 07/08/18 Last Taken 07/07/18 21:00] Glucosamn/[place]/C/Mn/[place] [[facility] Glucosamine Chondroit Cplt] 1 each PO BID 07/08/18 [History Confirmed 07/08/18 Last Taken 07/08/18 07:00] Cephalexin [Keflex] 500 mg PO BID #10 cap 07/10/18 [Rx Last Taken Unknown] Medical - DS: Hosp Hospital course: Discharge diagnosis * Right heel ulcer with early cellulitis clinically improved. Discharged today with outpatient wound care/oral Keflex for 5 days * History of hypertension well controlled on home dose metoprolol * Perioperatively neuropathic pain continue gabapentin * History of obstructive sleep apnea continue home CPAP * History of CHF continue metoprolol/metolazone/Lasix * Trigeminal neuralgia continue gabapentin * History of MS-continued Zanaflex/hydrocodone. Patient follows up with Dr. Maria Isabel Keys neurology at [facility]. * Anxiety disorder continue duloxetine/bupropion * BPH continue finasteride/tamsulosin * Hyperlipidemia on statin Brief Hospital Course Mr. Stapleton is a 68 year old M morbidly obese with history of obstructive sleep apnea/prior left BKA who presents to ER with worsening redness along with ulceration right heel. Patient recently had a lipoma lesion excision around right second toe and has been wearing a compressive dressing. Following removal of dressing he noticed ulceration along with it is blistering area with purplish discoloration around the heel extending to dorsum of the foot. With increasing concerns he came to the ER. Initial workup was consistent with heel ulcer/early cellulitis Hospitalist service was consulted for admission. However this no fever or leukocytosis. Patient's is disabled and patient has extreme difficulty ambulating in the context of left BKA and right heel ulceration and therefore ER physician felt it was unsafe to discharge home on antibiotics. At the time of evaluation patient is alert oriented. He denies fever, shaking chills, diarrhea, dysuria. Endorses to right perioperative burning pain similar to multiple episodes in the past. Denies recent trauma. Endorses to chronic pain but denies localized pain but endorses to swelling and redness. Patient denies any recent MS flares. He is due to see his neurologist Maria Isabel Keys next month. 07/09-patient doing better. Ongoing wound care. Case management coordinating safe discharge plan. Perioperative pain improving. Patient endorses that symptoms are similar to usual episodes of burning pain that has been occurring over the last 3 months. Denies visual changes/blurred vision/floaters. Recommend outpatient follow-up with ophthalmology on discharge. Patient will follow-up with neurology for his MS next month. 07/10-patient doing remarkably better. No overnight events. Ongoing wound care. Transition to oral antibiotics. Wound culture gram-positive cocci. Continue oral cephalexin. Satisfactory healing noted. Stabilizing hemodynamics. Recommend follow-up with primary care physician/ophthalmology/neurology/wound care as an outpatient Discharge diagnosis: . - Time Spent with Patient Total time spent providing and/or coordinating discharge services: Greater than 30 minutes Medical - DS: Exam - Constitutional Vitals: Vital Signs Temp Pulse Pulse Resp BP BP Pulse Ox 07/10/18 11:49 98.4 F 72 22 132/80 86 L 07/10/18 07:42 98.1 F 66 18 135/71 90 07/10/18 07:18 59 L 20 91 07/10/18 03:49 97 F 59 L 20 135/81 91 07/09/18 23:12 97.3 F 81 20 132/72 91 07/09/18 19:11 98.3 F 87 20 136/85 91 07/09/18 16:00 97.5 F 80 20 125/66 90 Intake and Output 07/09/18 07/10/18 07/10/18 21:59 05:59 13:59 Intake Total 1270 520 Output Total 3500 300 1450 Balance -5541 -133 -294 Intake: IV 50 Rocephin 2 gm In Dextrose 5% in 50 Water 50 ml @ 100 mls/hr IV Q24H [facility] Rx#:[id number] Oral 1220 520 Output: Void Amount 3500 300 1450 Other: Meal Nourishment/Supplement Breakfast Percent of Meal Consumed 100% 100% Feeding Ability Independent Assist with Tray Set Up Nourishment/Supplement name Tuna with crackers, veggies Urine Appearance Clear Clear Urine Color Bright Yellow Bright Yellow Bright Yellow Urine Odor Normal Normal Normal Weight 349 lb 9.6 oz Patient Weight 07/11/18 05:59 Weight 349 lb 9.6 oz Medical - DS: Data Labs on day of discharge: Labs from last 24 hours 07/10/18 07/10/18 04:23 04:23 WBC 7.5 RBC 4.14 L Hgb 12.6 L Hct 36.7 L MCV 88.7 MCH 30.4 MCHC 34.2 RDW 15.8 H Plt Count 275 MPV 7.6 Total Counted 100 Seg Neutrophils % 60 Band Neutrophils % 1 Lymphocytes % 28 Monocytes % (Manual) 4 Eosinophils % (Manual) 6 Basophils % (Manual) 1 Platelet Estimate Normal RBC Morphology Normal Sodium 141 Potassium 3.7 Chloride 100 Carbon Dioxide 30 Anion Gap 11.0 BUN 12 Creatinine 1.1 GFR Calculation 70 Glucose 99 Uric Acid 6.5 Calcium 8.9 Phosphorus 3.9 Magnesium 2.3 Total Bilirubin 0.3 Direct Bilirubin < 0.2 GGT 16 AST 13 ALT 9 Alkaline Phosphatase 115 Lactate Dehydrogenase 169 Total Protein 6.7 Albumin 3.7 Globulin 3.0 Albumin/Globulin Ratio 1.2 Triglycerides 165 H Preliminary micro results at discharge 07/08/18 15:56 Blood Culture - Preliminary Blood 07/08/18 15:47 Blood Culture - Preliminary Blood Medical - DS: A/P - Patient/Caregiver Discharge Instructions Activity: increase activity as tolerated Diet: Regular Diet Additional Instructions: Follow-up PCP in 5 days Follow-up with neurology for management of MS Dr. Maria Isabel Keys Follow-up ophthalmology in 1-2 weeks for intermittent eye symptoms Continue gabapentin for trigeminal neuralgia Follow-up with wound care clinic for right heel ulcer management Antibiotics for additional 5 days oral Keflex Continue aggressive bowel regimen to prevent constipation Continue fall precautions All meals on chair sitting upright at 90 degrees to prevent aspiration Return to ER if worsening fever chills shortness of breath, diarrhea, bleeding Review risk and side effect profile of medications including antibiotics. Side effect may include mild to severe reaction including rash, diarrhea, cdiff and even which can be prevented by close follow-up with PCP and monitoring for side effects Continue diet and activity as advised Discussed importance of medication adherence Please review medication list with patient prior to discharge Please schedule follow-up with PCP/Providers prior to discharge and provide printouts Prescriptions: Cephalexin [Keflex] 500 mg PO BID #10 cap - Problem Maintenance (1) Ulcer of right heel Status: Acute - Follow up Plan Follow up with: Ramonita Fitch MD [Primary Care Provider] - Chin Otero MD [Physician] - 07/11/18 2:30 pm (follow up at wound healing center , 07/11, at 2:30 pm, arrive 15 minutes early for paperwork.) Hiwot Huggins MD [Physician] - Disposition: Home, Self-Care Prognosis: Fair Rehab Potential: Fair I certify that the patient requires SNF services: No Overall status at discharge: patient is progressing back to baseline Medical - DS: Qual - VTE Deep Vein Thrombosis/Pulmonary Embolism Present on Admission: No
[2018-07-10] MEDS ORDERED: FISH OIL 1,000 MG CAPSULE PO SCH (21:00)
== END 2018-07-10 14:50 | disposition home or self-care (01) ==
LOC: ED 15:29 → MEDSUR 15:29
PROVIDERS: ADMIT Internal Medicine; ATTEND Internal Medicine

== ENCOUNTER 2019-10-07 18:22 | Observation (INO) ==
[2019-10-07] MEDS ORDERED: IOPAMIDOL 100 ML BOTTLE IV ONE (18:23)
[2019-10-07] MEDS ORDERED: 0.9 % SODIUM CHLORIDE 1,000 ML IV ONE (18:33)
[2019-10-07 19:26] LABS: Hemoglobin 11.5 g/dL (13.7-17.5); Mean Cell Volume 81.8 fL (80.0-100.0); Mean Corpuscular HGB Conc 32.9 g/dL (31.0-36.0); Mean Platelet Volume 8.5 fL (7.4-10.4); Platelet Count 447 K/mcL (140-440); RBC 4.28 M/mcL (4.63-6.08); Red Cell Distribution Width 18.3 % (11.5-14.5); WBC 14.2 K/mcL (4.50-11.00)
--- NOTE | 2019-10-07 19:48 | Cat Scan Report ---
INDICATION: altered mental status COMPARISON: None. TECHNIQUE: Axial noncontrast-enhanced images through the brain. Sagittally and coronally reformatted images. FINDINGS: Cerebral hemispheres:Negative. No intra-axial abnormality. No intra-axial hematoma. No localized mass effect. Brain volume is within normal limits. No hydrocephalus Brainstem and cerebellum:No intra-axial abnormality Extra-axial:No acute hemorrhage. No subdural or epidural hematoma. No subarachnoid hemorrhage. Basilar cisterns are normal Calvarial:No calvarial fracture. No lytic lesion Temporal bones are negative. No destructive lesions Soft tissue, orbits, sinuses:Orbits and visualized facial soft tissues and paranasal sinuses are negative IMPRESSION: Negative noncontrast enhanced brain CT scan The exam was performed using radiation dose optimization techniques including, but not limited to, automated exposure control, adjustment of the mA and/or kV according to patient size and use of iterative reconstruction technique. Interpreted and Authenticated by: Christian Chiang 10/07/19
[2019-10-07 19:49] LABS: Anisocytosis 1+ (NONE SEEN); Band Neutrophils % 1 % (0-10); Lymphocytes % 32 % (15-49); Monocytes % (Manual) 6 % (1-12); Platelet Estimate INCREASED (NORMAL); RBC Morphology ABNORMAL (NORMAL); Reactive Lymphocytes 1 % (0-2); Segmented Neutrophils % 60 % (38-78)
--- NOTE | 2019-10-07 19:49 | Emergency Department Note ---
Altered Mental Status HPI General Chief Complaint: Altered Mental Status Stated Complaint: AMS Time Seen by Provider: 10/07/19 19:04 Source: patient Mode of arrival: EMS Limitations: no limitations and altered mental status History of Present Illness HPI Narrative: Narrative: Patient is a 69-year-old male who comes into the emergency department today by EMS. Patient currently residing at [facility]. He was discharged from [facility] yesterday after being admitted for urosepsis. Patient was discharged to the long term facility, and nursing staff was concerned that patient is not at his baseline and has altered mental status. Patient arrives with a Culver catheter in place. He is a poor historian due to his current condition. Reviewing the patient's long-term records patient has a history of acute kidney failure, type 2 diabetes, CHF, Charcot foot, cerebrovascular disease, COPD, BPH. Patient apparently has C. difficile and is being treated with fidaxomicin. He is currently taking clindamycin for the recent pneumonia. Other medications i nclude hydrocodone 7.5 mg tablet where he takes 2 tablets by mouth every 6 hours as needed for pain. [facility] the information the patient is typically alert and oriented x4. Over the last 3 to 4 weeks he has been having repeated bouts of infection of unknown origin. She reports that he was diagnosed with left lower lobe pneumonia, C. difficile, nasal swab revealed MRSA. He has been getting treatment for these but continues to have recurrent infection. Related Data Home Medications Medication Instructions Recorded Confirmed hydrocodone 10 mg-acetaminophen 1 - 2 tab PO Q8HP PRN 08/03/14 08/28/19 325 mg tablet multivitamins 1 tab PO QDAY 08/03/14 08/28/19 simvastatin 10 mg tablet 10 mg PO HS tab 08/03/14 08/28/19 etodolac 400 mg tablet 400 mg PO BID 08/02/15 08/28/19 metoprolol tartrate 25 mg tablet 12.5 mg PO BID tab 08/02/15 08/28/19 potassium chloride 10 mEq 20 meq PO BID@08,12 cap 08/02/15 08/28/19 capsule,extended release cholecalciferol (vitamin D3) 1,250 50,000 unit PO .2XW tab 02/02/16 08/28/19 mcg (50,000 unit) tablet fish,bora,flax oils-om3,6,9no1 1 cap PO BID cap 02/02/16 08/28/19 1,200 mg capsule furosemide 80 mg tablet 30 mg PO DAILY tab 02/02/16 08/28/19 gabapentin 600 mg PO TID 02/02/16 08/28/19 tizanidine 4 mg capsule 2 mg PO BID cap 02/02/16 08/28/19 aspirin 325 mg tablet 325 mg PO DAILY 03/28/17 08/28/19 pramipexole 0.125 mg tablet 0.125 mg PO DAILY tab 04/01/18 08/28/19 pramipexole 0.5 mg tablet 0.5 mg PO QHS 04/01/18 08/28/19 duloxetine 30 mg PO BID 05/28/18 08/28/19 metolazone 2.5 mg PO DAILYP PRN 05/28/18 08/28/19 jffiafka-yrdifl-yis C-Mn-boron 1 each PO BID 07/08/18 08/28/19 bupropion HCl 150 mg PO BID 10/10/18 08/28/19 amlodipine 2.5 mg PO QDAY 08/28/19 08/28/19 oxcarbazepine 150 mg PO BID 08/28/19 08/28/19 Previous Rx's Medication Instructions Recorded oxybutynin chloride 15 mg 15 mg PO BID #60 tab 04/01/18 tablet,extended release 24 hr cephalexin 500 mg PO BID #10 cap 07/10/18 tamsulosin 0.4 mg capsule 0.8 mg PO HS #180 cap 08/26/18 finasteride 5 mg tablet 5 mg PO HS #90 tab 10/21/18 Allergies Allergy/AdvReac Type Severity Reaction Status Date / Time Cefprozil [From Cefzil] AdvReac Mild Diarrhea Verified 10/07/19 18:25 pregabalin [From Lyrica] AdvReac Mild swelling Verified 10/07/19 18:25 of hands and feet sertraline [From Zoloft] AdvReac Mild swelling Verified 10/07/19 18:25 of hands and feet Review of Systems ROS ROS Narrative: Narrative: Constitutional: Denies fever and chills Eyes: Denies eye pain and vision change ENT ED: Denies throat pain and dysphagia Cardiovascular: Denies chest pain and palpitations Respiratory: Denies shortness of breath and cough Gastrointestinal: Denies abdominal pain, nausea, vomiting, diarrhea and constipation Genitourinary: Denies discharge and testicular pain Musculoskeletal: Denies back pain Integumentary: Denies change in color Neurological: Reports as per HPI and confusion; Denies headache, weakness, numbness, paresthesias and dizziness Hematological/Lymphatic: Denies easy bleeding, easy bruising and lymphadenopathy [facility] Narrative Patient History Narrative: Narrative: Medical/Surgical/Family History All Active Problems (Updated 10/07/19 @ 22:30 by DONNY Ca) Chronic wound of extremity (Acute) Dyspnea (Acute) Hypoxia (Acute) UTI (urinary tract infection) (Acute) Decubitus ulcer of coccygeal region, stage 2 (Acute) Sepsis (Acute) Chronic narcotic use (Chronic) Foot ulcer, right (Acute) Cellulitis (Acute) S/P BKA (below knee amputation) (Acute) Impaired ambulation (Acute) Fever (Acute) Ulcer of right heel (Acute) Obesity, morbid (more than 100 lbs over ideal weight or BMI > 40) (Chronic) Dysmetabolic syndrome X (Chronic) Multiple sclerosis (Chronic) Hyperlipidemia (Chronic) Urge incontinence (Chronic) Tabes dorsalis (Chronic) Osteoarthrosis (Chronic) Neuropathy (Chronic) Neurogenic bladder (Chronic) Kidney stones (Chronic) Hearing loss (Chronic) Cannabis abuse (Chronic) BPH without obstruction/lower urinary tract symptoms (Chronic) Medical History (Updated 10/07/19 @ 22:30 by DONNY Ca) BPH without obstruction/lower urinary tract symptoms (Chronic) Cannabis abuse (Chronic) Chronic narcotic use (Chronic) Dysmetabolic syndrome X (Chronic) Hearing loss (Chronic) Hemorrhoids, internal (Resolved) Hyperlipidemia (Chronic) Kidney stones (Chronic) Lipoma of skin and subcutaneous tissue of face (Resolved) Multiple sclerosis (Chronic) Neurogenic bladder (Chronic) Neuropathy (Chronic) Nocturia (Resolved) 02/09/2014 Obesity, morbid (more than 100 lbs over ideal weight or BMI > 40) (Chronic) Osteoarthrosis (Chronic) Shortness of breath (Resolved) Skin benign neoplasm (Resolved) Tabes dorsalis (Chronic) Ureteral calculus (Resolved) 02/09/2014 Urge incontinence (Chronic) 02/09/2014 Surgical History (Updated 10/10/18 @ 17:00 by Chin Otero MD) History of below knee amputation (Acute) Left History of foot surgery (Resolved) ankle repair History of hip surgery (Resolved) 10/04/2013 Hx of adenoidectomy (Resolved) Hx of cataract surgery (Acute) bilateral Hx of colonoscopy (Resolved) 2003 Hx of knee surgery (Resolved) Hx of tonsillectomy (Resolved) Family History father Secondary malignant neoplasm of bone Diabetes mellitus Carcinoma in situ of skin sister Malignant neoplasm of breast grandmother (paternal) Diabetes mellitus Social History Smoking Status: Former smoker Alcohol Intake Frequency: holiday/special occasion only Substance Use: does not use and marijuana Exam Narrative Narrative: Narrative: General Limitations: no limitations and altered mental status General appearance: alert Head Head: atraumatic and normocephalic Eye Eye: Present normal appearance, PERRL, EOMI and visual page intact; Absent scleral icterus, conjunctival injection and nystagmus ENT ENT: Present normal oropharynx, mucous membranes moist and TM's normal bilaterally Neck Neck: Present normal inspection, full ROM and trachea midline; Absent tenderness, meningismus, lymphadenopathy and thyromegaly Chest Chest: Present normal inspection and symmetric chest wall rise Respiratory Respiratory: Present normal lung sounds bilaterally; Absent respiratory distress, wheezes, stridor, accessory muscle use and prolonged expiratory phase Cardiovascular Cardiovascular: Present regular rate and normal rhythm; Absent systolic murmur and diastolic murmur Adbominal Abdominal: Present soft; Absent distention, tenderness, guarding, rebound, rigidity, organomegaly and mass Extremities Extremities: Present normal capillary refill Back Back: Present normal inspection Expanded Neurological Patient oriented to: Present person; Absent place and time Speech: Present fluid speech CRANIAL NERVES: EOM function (II, III, IV, ): Normal, facial sensation (V): N ormal, facial palsy (VII): Normal, gag reflex (IX): Normal, spinal accessory function (XI): Normal and tongue deviation (XII): Normal CEREBELLAR FUNCTION: finger to nose: Normal Motor strength - LUE: 5/5 Motor strength - RUE: 5/5 Motor strength - RLE: 5/5 UPPER MOTOR NEURON EXAM: aditya neglect: Normal and pronator drift: Normal SENSORY EXAM UPPER EXTREMITY: Normal: light touch SENSORY EXAM LOWER EXTREMITY: Normal: light touch Coma Scale Eye Opening: Spontaneous Coma Scale Motor Response: Obeys Commands Coma Scale Verbal Response: Confused Coma Scale Total: 14 Psychiatric Psychiatric: Present normal affect and normal mood Skin Skin: Present warm, dry, normal color and other (Excoriation to the coccyx area with a stage II ulcer that is a very pinpoint sized to the coccyx.) Course Course Course Narrative: 2199 -report given to Dr. Jose who will assume care at 2200 due to shift change. I discussed this case with Dr. Jose, and have ordered CT abdomen pelvis with contrast to try and help identify the source of infection. Patient does have a coccyx wound. Ordered Zosyn antibiotic to be given. Blood cultures have been obtained. Patient received a liter normal saline. Vital Signs Vital signs: Vital Signs Temperature 97.8 F 10/07/19 18:25 Pulse Rate 111 H 10/07/19 18:25 Respiratory Rate 17 10/07/19 18:25 Blood Pressure 145/90 10/07/19 18:25 Pulse Oximetry (%) 95 10/07/19 18:25 Temperature 98.2 F 10/07/19 18:44 Pulse Rate 86 10/07/19 22:17 Respiratory Rate 22 10/07/19 20:35 Blood Pressure 112/75 10/07/19 22:17 Pulse Oximetry (%) 91 10/07/19 22:17 [facility] MDM Narrative Medical decision making narrative: Narrative: Normal head CT scan without contrast today. Patient received 650 mg of IV Tylenol for pain. Lab Data Lab results reviewed: Yes I reviewed the patient's lab results. Result diagrams: 10/07/19 18:34 10/07/19 18:34 Labs: Lab Results 10/07/19 10/07/19 10/07/19 Range/Units 18:34 18:34 18:34 WBC 14.2 H (4.50-11.00) K/mcL RBC 4.28 L (4.63-6.08) M/mcL Hgb 11.5 L (13.7-17.5) g/dL Hct 35.0 L (40.1-51.0) % MCV 81.8 (80.0-100.0) fL MCH 26.9 (26.0-34.0) pg MCHC 32.9 (31.0-36.0) g/dL RDW 18.3 H (11.5-14.5) % Plt Count 447 H (140-440) K/mcL MPV 8.5 (7.4-10.4) fL Total Counted 100 Seg Neutrophils % 60 (38-78) % Band Neutrophils % 1 (0-10) % Lymphocytes % 32 (15-49) % Monocytes % (Manual) 6 (1-12) % Reactive Lymphocytes 1 (0-2) % Platelet Estimate Increased A (NORMAL) RBC Morphology Abnormal (NORMAL) Anisocytosis 1+ A (NONE SEEN) VBG Lactic Acid 1.0 (0.5-2.0) mmol/L Sodium 142 (133-145) mmol/L Potassium 3.3 (3.3-5.1) mmol/L Chloride 106 (96-108) mmol/L Carbon Dioxide 24 (22-30) mmol/L Anion Gap 12.0 (8-16) BUN 13 (8-23) mg/dl Creatinine 1.0 (0.7-1.2) mg/dl GFR Calculation 78 Glucose 135 H (70-105) mg/dL Calcium 8.5 L (8.6-10.4) mg/dl Total Bilirubin 0.3 (0.0-1.0) mg/dL AST 32 (0-37) U/l ALT 26 (0-40) U/l Alkaline Phosphatase 78 (39-117) U/L Total Protein 6.6 (5.9-8.4) gm/dL Albumin 2.7 L (3.2-5.2) gm/dL Globulin 3.9 H (2.2-3.7) gm/dL Albumin/Globulin Ratio 0.7 L (1.0-2.3) Urine Color Urine Appearance Urine pH (5.0-9.0) Ur Specific [place] (1.000-1.035) Urine Protein (NEG) mg/dL Urine Glucose (UA) (NEG) mg/dL Urine Ketones (NEG) mg/dL Urine Occult Blood (<0.03) mg/dL Urine Nitrate (NEG) Urine Bilirubin (NEG) mg/dL Urine Urobilinogen (NEG) mg/dL Ur Leukocyte Esterase (NEG) /uL Urine RBC (0-1) /hpf Urine WBC (0-4) /hpf Ur Squamous Epith Cells (0-4) /hpf Urine Bacteria (0) /hpf Urine Mucus (0) /hpf Urine Yeast (Budding) (0) /hpf Ur Culture Indicated? 10/07/19 Range/Units 20:39 WBC (4.50-11.00) K/mcL RBC (4.63-6.08) M/mcL Hgb (13.7-17.5) g/dL Hct (40.1-51.0) % MCV (80.0-100.0) fL MCH (26.0-34.0) pg MCHC (31.0-36.0) g/dL RDW (11.5-14.5) % Plt Count (140-440) K/mcL MPV (7.4-10.4) fL Total Counted Seg Neutrophils % (38-78) % Band Neutrophils % (0-10) % Lymphocytes % (15-49) % Monocytes % (Manual) (1-12) % Reactive Lymphocytes (0-2) % Platelet Estimate (NORMAL) RBC Morphology (NORMAL) Anisocytosis (NONE SEEN) VBG Lactic Acid (0.5-2.0) mmol/L Sodium (133-145) mmol/L Potassium (3.3-5.1) mmol/L Chloride (96-108) mmol/L Carbon Dioxide (22-30) mmol/L Anion Gap (8-16) BUN (8-23) mg/dl Creatinine (0.7-1.2) mg/dl GFR Calculation Glucose (70-105) mg/dL Calcium (8.6-10.4) mg/dl Total Bilirubin (0.0-1.0) mg/dL AST (0-37) U/l ALT (0-40) U/l Alkaline Phosphatase (39-117) U/L Total Protein (5.9-8.4) gm/dL Albumin (3.2-5.2) gm/dL Globulin (2.2-3.7) gm/dL Albumin/Globulin Ratio (1.0-2.3) Urine Color Justa Urine Appearance Hazy Urine pH 6.0 (5.0-9.0) Ur Specific [place] 1.026 (1.000-1.035) Urine Protein 100 A (NEG) mg/dL Urine Glucose (UA) Negative (NEG) mg/dL Urine Ketones 20 A (NEG) mg/dL Urine Occult Blood 0.2 A (<0.03) mg/dL Urine Nitrate Neg (NEG) Urine Bilirubin Neg (NEG) mg/dL Urine Urobilinogen Neg (NEG) mg/dL Ur Leukocyte Esterase Neg (NEG) /uL Urine RBC > 182 H (0-1) /hpf Urine WBC 20 H (0-4) /hpf Ur Squamous Epith Cells < 1 (0-4) /hpf Urine Bacteria 0 (0) /hpf Urine Mucus Many A (0) /hpf Urine Yeast (Budding) Many A (0) /hpf Ur Culture Indicated? Yes Radiology Data Radiology results narrative: Ordering Physician: Jose Antonio Marte Date of Service: 10/07/19 Procedure(s): XR chest 1V portable Accession Number(s): [id number] INDICATION: altered mental status TECHNIQUE: AP portable semiupright chest x-ray COMPARISON: Chest CT scan dated 09/21/2019. Chest x-ray dated 09/21/2019 FINDINGS: Lungs:Mild bibasilar pulmonary parenchymal density. Allowances are made for differences in technique there is no definite interval change. Findings are consistent with mild bibasilar atelectasis. Pneumonia is not excluded. No other abnormalities. No focal consolidation. Heart, vascular:No significant cardiomegaly. Pulmonary vascularity is normal. No pulmonary edema or pulmonary congestion Mediastinum, paras:No mediastinal widening. No hilar mass Pleura:No pleural fluid. No pleural-based mass or calcification Skeletal:Negative. IMPRESSION: 1. Mild bibasilar parenchymal density 2. No definite interval change since 09/21/2019 Interpreted and Authenticated by: Christian Chiang 10/07/19 EKG Data EKG #1: EKG attestation: Yes There are no EKG findings of acute coronary syndrome and Yes This EKG will be read by cartoon animator EKG results narrative: Sinus tachycardia with occasional PVCs. No findings of acute coronary syndrome. EKG shows normal: sinus rhythm Rate: tachycardia Discharge Plan Patient/Caregiver Discharge Instructions Pt seen by RUBBER GASKET INSPECTOR TRIMMER/PA only: No Clinical Impression: Decubitus ulcer of coccygeal region, stage 2, Sepsis UTI (urinary tract infection) Qualifiers: Urinary tract infection type: catheter-associated UTI Indwelling urinary catheter type: indwelling urethral catheter Encounter type: subsequent encounter Qualified Code(s): T83.511D - Infection and inflammatory reaction due to indwelling urethral catheter, subsequent encounter Patient Disposition: Still a Patient Follow up with: Ramonita Fitch MD [Primary Care Provider] - Prescriptions: No Action tamsulosin 0.4 mg capsule 0.8 mg PO HS Qty: 180 RF: 5 finasteride 5 mg tablet 5 mg PO HS Qty: 90 RF: 5 simvastatin 10 mg tablet 10 mg PO HS RF: 0 hydrocodone-acetaminophen 1 TAB tablet 1 - 2 tab PO Q8HP PRN (Reason: Pain) RF: 0 multivitamins 1 tab PO QDAY RF: 0 tizanidine 4 mg capsule 2 mg PO BID RF: 0 metolazone 2.5 MG tablet 2.5 mg PO DAILYP PRN (Reason: Edema) RF: 0 duloxetine 30 MG capsule 30 mg PO BID RF: 0 sqeftgrb-rceehx-yhk C-Mn-boron 1 EACH tablet 1 each PO BID RF: 0 cephalexin 500 MG capsule 500 mg PO BID Qty: 10 RF: 0 bupropion HCl 150 MG tablet sustained-release 12 hr 150 mg PO BID RF: 0 oxcarbazepine 150 mg Tablet 150 mg PO BID RF: 0 amlodipine 2.5 mg Tablet 2.5 mg PO QDAY RF: 0 potassium chloride 10 mEq capsule, extended release 20 meq PO BID@08,12 RF: 0 etodolac 400 mg tablet 400 mg PO BID RF: 0 metoprolol tartrate 25 mg tablet 12.5 mg PO BID RF: 0 gabapentin 300 mg capsule 600 mg PO TID RF: 0 pramipexole 0.125 mg tablet 0.125 mg PO DAILY RF: 0 cholecalciferol (vitamin D3) 50,000 unit tablet 50,000 unit PO .2XW RF: 0 furosemide 80 mg tablet 30 mg PO DAILY RF: 0 fish,bora,flax oils-om3,6,9no1 [[place] 3-6-9] 1,200 mg capsule 1 cap PO BID RF: 0 aspirin 325 mg tablet 325 mg PO DAILY RF: 0 pramipexole 0.5 mg tablet 0.5 mg PO QHS RF: 0 oxybutynin chloride 15 mg tablet extended release 24hr 15 mg PO BID Qty: 60 RF: 12
[2019-10-07 19:53] LABS: ALT/SGPT 26 U/l (0-40); AST/SGOT 32 U/l (0-37); Albumin 2.7 gm/dL (3.2-5.2); Albumin/Globulin Ratio 0.7 (1.0-2.3); Alkaline Phosphatase 78 U/L (39-117); Bilirubin,Total 0.3 mg/dL (0.0-1.0); Blood Urea Nitrogen 13 mg/dl (8-23); Calcium 8.5 mg/dl (8.6-10.4); Carbon Dioxide 24 mmol/L (22-30); Chloride 106 mmol/L (96-108); Globulin 3.9 gm/dL (2.2-3.7); Glomerular Filtration Rate 78; Glucose 135 mg/dL (70-105)
[2019-10-07] MEDS ORDERED: ACETAMINOPHEN 650 MG/65 ML BOTTLE IV ONE (20:11)
--- NOTE | 2019-10-07 20:20 | XRay Report ---
INDICATION: altered mental status TECHNIQUE: AP portable semiupright chest x-ray COMPARISON: Chest CT scan dated 09/21/2019. Chest x-ray dated 09/21/2019 FINDINGS: Lungs:Mild bibasilar pulmonary parenchymal density. Allowances are made for differences in technique there is no definite interval change. Findings are consistent with mild bibasilar atelectasis. Pneumonia is not excluded. No other abnormalities. No focal consolidation. Heart, vascular:No significant cardiomegaly. Pulmonary vascularity is normal. No pulmonary edema or pulmonary congestion Mediastinum, paras:No mediastinal widening. No hilar mass Pleura:No pleural fluid. No pleural-based mass or calcification Skeletal:Negative. IMPRESSION: 1. Mild bibasilar parenchymal density 2. No definite interval change since 09/21/2019 Interpreted and Authenticated by: Christian Chiang 10/07/19
[2019-10-07 22:10] LABS: Appearance,Urine HAZY; Bacteria,Urine 0 /hpf (0); Bilirubin,Urine NEG (NEG); Color,Urine AMBER; Culture Indicated,Urine YES; Glucose,Urine (UA) NEGATIVE (NEG); Ketones,Urine 20 mg/dL (NEG); Leukocyte Esterase,Urine NEG /uL (NEG); Mucus,Urine MANY /hpf (0); Nitrate,Urine NEG (NEG); Protein,Urine 100 mg/dL (NEG); Specific Gravity,Urine 1.026 (1.000-1.035); Urine Blood 0.2 mg/dL (<0.03); Urine Budding Yeast MANY /hpf (0); Urine RBC > 182 /hpf (0-1); Urine Squamous Epithelial Cell < 1 /hpf (0-4); Urine WBC 20 /hpf (0-4); Urobilinogen,Urine NEG (NEG)
[2019-10-07] MEDS ORDERED: PIPERACILLIN SODIUM/TAZOBACTAM 3.375 GM in DEXTROSE 5% IN WATER 50 ML IV ONE (22:36)
--- NOTE | 2019-10-08 01:35 | Emergency Department Note ---
Altered Mental Status HPI General Chief Complaint: Altered Mental Status Stated Complaint: AMS Time Seen by Provider: 10/07/19 19:04 Source: patient Mode of arrival: EMS Limitations: altered mental status and physical limitation (Left BKA) History of Present Illness HPI Narrative: See history and physical dictated by DONNY Beyer. I have discussed his case with him and I am following up after the end of his shift. Review of old records includes that patient was discharged from [facility] on the having been admitted on the . His diagnoses were pneumonia, sepsis, encephalopathy, acute delirium. Patient apparently was returned back to [facility] after being sent back to [facility] - this because he was found to still be quite obtunded. At the emergency room further evaluation and even speaking with Dr. Fitch did not include readmission and patient was sent back to [facility]. Tonight he is being sent here because he continues to have intermittent or significant altered mental status, lethargy, decreased responsiveness/awareness. His work-up here has included a negative CT scan, chest x-ray appears to be without any infiltrate per the unofficial review, white count mildly elevated at 14.2, H&H 11.5 and 35.0. Lactic acid is 1.0. UA shows 182 RBCs and 20 WBCs but he has a Culver cath that has been present. His initial vital signs included a mild tachycardia and with pulse in the 90-95 range. On exam he was found to have a small pinpoint sacral lesion and it was uncertain if this could be tunneling, etc. For this reason, and looking for a source of infection and cause of altered mental status, a CT scan of the abdomen and pelvis was also done. Related Data Home Medications Medication Instructions Recorded Confirmed multivitamins 1 tab PO QDAY 08/03/14 10/07/19 etodolac 400 mg tablet 400 mg PO BID 08/02/15 10/07/19 potassium chloride 10 mEq 20 meq PO BID@08,12 cap 08/02/15 10/07/19 capsule,extended release cholecalciferol (vitamin D3) 1,250 50,000 unit PO .2XW tab 02/02/16 10/07/19 mcg (50,000 unit) tablet furosemide 80 mg tablet 30 mg PO DAILY tab 02/02/16 10/07/19 aspirin 325 mg tablet 325 mg PO DAILY 03/28/17 10/07/19 pramipexole 0.125 mg tablet 0.125 mg PO DAILY tab 04/01/18 10/07/19 pramipexole 0.5 mg tablet 0.5 mg PO QHS 04/01/18 10/07/19 duloxetine 30 mg PO BID 05/28/18 10/07/19 bupropion HCl 150 mg PO BID 10/10/18 10/07/19 oxcarbazepine 150 mg PO BID 08/28/19 10/07/19 bisacodyl 10 mg ND ONCE PRN 10/07/19 10/07/19 clindamycin HCl 300 mg PO QID 10/07/19 10/07/19 hydrocodone-acetaminophen 1 - 2 tab PO Q6H PRN 10/07/19 10/07/19 magnesium hydroxide [Milk of 30 ml PO QDAY PRN 10/07/19 10/07/19 Magnesia] metoprolol tartrate 12.5 mg PO BID 10/07/19 10/07/19 omega [id number] oil [Bradford-3] 1 cap PO BID 10/07/19 10/07/19 tamsulosin 0.4 mg PO HS 10/07/19 10/07/19 Previous Rx's Medication Instructions Recorded oxybutynin chloride 15 mg 15 mg PO BID #60 tab 04/01/18 tablet,extended release 24 hr finasteride 5 mg tablet 5 mg PO HS #90 tab 10/21/18 Allergies Allergy/AdvReac Type Severity Reaction Status Date / Time Cefprozil [From Cefzil] AdvReac Mild Diarrhea Verified 10/07/19 18:25 pregabalin [From Lyrica] AdvReac Mild swelling Verified 10/07/19 18:25 of hands and feet sertraline [From Zoloft] AdvReac Mild swelling Verified 10/07/19 18:25 of hands and feet Review of Systems ROS ROS Narrative: Narrative: Neurological: Reports as per HPI and confusion; Denies headache, weakness, numbness, paresthesias and dizziness PFSH Narrative Patient History Narrative: Narrative: Medical/Surgical/Family History All Active Problems (Updated 10/08/19 @ 02:39 by Keo Jose DO) Colitis due to Clostridium difficile (Acute) Encephalopathy acute (Acute) Altered mental status (Acute) Chronic wound of extremity (Acute) Decubitus ulcer of coccygeal region, stage 2 (Acute) Chronic narcotic use (Chronic) Foot ulcer, right (Acute) Cellulitis (Acute) S/P BKA (below knee amputation) (Acute) Impaired ambulation (Acute) Fever (Acute) Ulcer of right heel (Acute) Obesity, morbid (more than 100 lbs over ideal weight or BMI > 40) (Chronic) Dysmetabolic syndrome X (Chronic) Multiple sclerosis (Chronic) Hyperlipidemia (Chronic) Urge incontinence (Chronic) Tabes dorsalis (Chronic) Osteoarthrosis (Chronic) Neuropathy (Chronic) Neurogenic bladder (Chronic) Kidney stones (Chronic) Hearing loss (Chronic) Cannabis abuse (Chronic) BPH without obstruction/lower urinary tract symptoms (Chronic) Medical History (Updated 10/08/19 @ 02:39 by Keo Jose DO) BPH without obstruction/lower urinary tract symptoms (Chronic) Cannabis abuse (Chronic) Chronic narcotic use (Chronic) Dysmetabolic syndrome X (Chronic) Dyspnea (Inactive) Hearing loss (Chronic) Hemorrhoids, internal (Resolved) Hyperlipidemia (Chronic) Hypoxia (Resolved) Kidney stones (Chronic) Lipoma of skin and subcutaneous tissue of face (Resolved) Multiple sclerosis (Chronic) Neurogenic bladder (Chronic) Neuropathy (Chronic) Nocturia (Resolved) 02/09/2014 Obesity, morbid (more than 100 lbs over ideal weight or BMI > 40) (Chronic) Osteoarthrosis (Chronic) Shortness of breath (Resolved) Skin benign neoplasm (Resolved) Tabes dorsalis (Chronic) Ureteral calculus (Resolved) 02/09/2014 Urge incontinence (Chronic) 02/09/2014 Surgical History (Updated 10/10/18 @ 17:00 by Chin Otero MD) History of below knee amputation (Acute) Left History of foot surgery (Resolved) ankle repair History of hip surgery (Resolved) 10/04/2013 Hx of adenoidectomy (Resolved) Hx of cataract surgery (Acute) bilateral Hx of colonoscopy (Resolved) 2003 Hx of knee surgery (Resolved) Hx of tonsillectomy (Resolved) Social History Smoking Status: Former smoker Alcohol Intake Frequency: holiday/special occasion only Substance Use: does not use and marijuana Exam General Limitations: altered mental status and physical limitation (Left BKA) General appearance: alert and nontoxic Head Head: atraumatic and normocephalic Eye Eye: Present EOMI Neck Neck: Present trachea midline; Absent lymphadenopathy and thyromegaly Chest Chest: Present symmetric chest wall rise Respiratory Respiratory: Present normal lung sounds bilaterally; Absent respiratory distress, wheezes, stridor, accessory muscle use and prolonged expiratory phase Cardiovascular Cardiovascular: Present regular rate and normal rhythm; Absent systolic murmur and diastolic murmur Adbominal Abdominal: Present soft; Absent distention, tenderness, guarding, rebound, rigidity, organomegaly and mass Extremities Extremities: Absent pedal edema and pretibial edema Neurological Neurological: Present alert and other (Ability to spell [place] and this was quite slow. He is unable to name the place or circumstance. 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 and therefore the place that he is in and around this is the hospital.); Absent oriented X3 Psychiatric Psychiatric: Present normal affect, normal mood, flat affect, serious, polite, pleasant and other (Rather flat face ease.); Absent tearful and poor eye contact Course Vital Signs Vital signs: Vital Signs Temperature 97.8 F 10/07/19 18:25 Pulse Rate 111 H 10/07/19 18:25 Respiratory Rate 17 10/07/19 18:25 Blood Pressure 145/90 10/07/19 18:25 Pulse Oximetry (%) 95 10/07/19 18:25 Temperature 98.2 F 10/07/19 18:44 Pulse Rate 86 10/07/19 22:17 Respiratory Rate 22 10/07/19 20:35 Blood Pressure 112/75 10/07/19 22:17 Pulse Oximetry (%) 91 10/07/19 22:17 [facility] Narrative Medical decision making narrative: 11:57 PM - I spoke with hospitalist, Dr. Radha Hdez, to discuss options and considerations including if this patient should be admitted. His previous records were reviewed. We concluded that seeking the knowledge of what has really changed for this patient and when seems to be valuable. He has had multiple labs and tests and admissions. Spinal tap would seem to give a low yield with patient being on clindamycin but this may also be contributing to his difficulty with clearing C. difficile. But his actual normal baseline may be new or adjusted. 12:23 AM - I tried to speak with patient's , Yancy Wayne, , but no one answered. Approximately 20 minutes later nursing staff also attempted without success. 12:45 AM - his facility indicates that over the past month he has come and gone as far as his mental status and alertness and this many times are multiple times. 1:14 AM - I spoke with Dr. Fitch, patient's PCP, who adamantly indicates that patient usually is tuned up with hospital admissions, i.e., an infection or a problem was found and when admitted to the hospital he can be significantly ill or altered mental status etc. and then "gets tuned up" and comes back being back to his normal which is interactive, appropriate, conversational. However, yesterday this did not happen. For this reason she sent him back to the hospital and then sent him to [facility]. She also has questions about whether or not he could be hypercarboxic due to not being on CPAP during his hospital stay, etc. However, it seems like when they tried to put him back on his CPAP yesterday it did not seem to make a difference and therefore something else must be off. She agrees that there may not be an easy answer of exactly what has gone wrong or is wrong but this is the first time that something has not been able to be identified that can make a difference for him. She agrees with changing his clindamycin to doxycycline to continue to treat the pneumonia if needed and to hopefully be less problematic for clearing his C. difficile. If patient needs to be admitted for an MRI this could certainly be considered. She points out that his peripheral neuropathy is a consequence of his multiple scler osis, not his diabetes. 1:40 AM - ABG results include pH 7.43, PCO2 37, PO2 of 60, base excess normal at 0.4 with a bicarb of 24.6. This demonstrates a fairly unremarkable ABG without CO2 retention. 1:45 AM - CT scan of the abdomen and pelvis with contrast demonstrates some compromised detail due to artifact. And/or patient movement. There are cysts in the kidneys 1 of which is moderately complicated. The sigmoid colon is considerably abnormal with concentric smooth thickening of its teran, enhancement of the mucosa and probably related mesenteric hyperemia. This appearance is compatible with a colitis. The small bowel is abnormal as well compatible with an associated ileus. 2:20 AM - spoke with hospitalist, Doctor Lemuel Yang, who is willing to accept the care of this patient for an observation admission and consider MRI in the morning which I also ordered. However, of note, is patient's large size 288 lbs, and he made sedation. Lab Data Result diagrams: 10/07/19 18:34 10/07/19 18:34 Labs: Lab Results 10/07/19 10/07/19 10/07/19 Range/Units 18:34 18:34 18:34 WBC 14.2 H (4.50-11.00) K/mcL RBC 4.28 L (4.63-6.08) M/mcL Hgb 11.5 L (13.7-17.5) g/dL Hct 35.0 L (40.1-51.0) % MCV 81.8 (80.0-100.0) fL MCH 26.9 (26.0-34.0) pg MCHC 32.9 (31.0-36.0) g/dL RDW 18.3 H (11.5-14.5) % Plt Count 447 H (140-440) K/mcL MPV 8.5 (7.4-10.4) fL Total Counted 100 Seg Neutrophils % 60 (38-78) % Band Neutrophils % 1 (0-10) % Lymphocytes % 32 (15-49) % Monocytes % (Manual) 6 (1-12) % Reactive Lymphocytes 1 (0-2) % Platelet Estimate Increased A (NORMAL) RBC Morphology Abnormal (NORMAL) Anisocytosis 1+ A (NONE SEEN) VBG Lactic Acid 1.0 (0.5-2.0) mmol/L Sodium 142 (133-145) mmol/L Potassium 3.3 (3.3-5.1) mmol/L Chloride 106 (96-108) mmol/L Carbon Dioxide 24 (22-30) mmol/L Anion Gap 12.0 (8-16) BUN 13 (8-23) mg/dl Creatinine 1.0 (0.7-1.2) mg/dl GFR Calculation 78 Glucose 135 H (70-105) mg/dL Calcium 8.5 L (8.6-10.4) mg/dl Total Bilirubin 0.3 (0.0-1.0) mg/dL AST 32 (0-37) U/l ALT 26 (0-40) U/l Alkaline Phosphatase 78 (39-117) U/L Total Protein 6.6 (5.9-8.4) gm/dL Albumin 2.7 L (3.2-5.2) gm/dL Globulin 3.9 H (2.2-3.7) gm/dL Albumin/Globulin Ratio 0.7 L (1.0-2.3) Urine Color Urine Appearance Urine pH (5.0-9.0) Ur Specific [place] (1.000-1.035) Urine Protein (NEG) mg/dL Urine Glucose (UA) (NEG) mg/dL Urine Ketones (NEG) mg/dL Urine Occult Blood (<0.03) mg/dL Urine Nitrate (NEG) Urine Bilirubin (NEG) mg/dL Urine Urobilinogen (NEG) mg/dL Ur Leukocyte Esterase (NEG) /uL Urine RBC (0-1) /hpf Urine WBC (0-4) /hpf Ur Squamous Epith Cells (0-4) /hpf Urine Bacteria (0) /hpf Urine Mucus (0) /hpf Urine Yeast (Budding) (0) /hpf Ur Culture Indicated? 10/07/19 Range/Units 20:39 WBC (4.50-11.00) K/mcL RBC (4.63-6.08) M/mcL Hgb (13.7-17.5) g/dL Hct (40.1-51.0) % MCV (80.0-100.0) fL MCH (26.0-34.0) pg MCHC (31.0-36.0) g/dL RDW (11.5-14.5) % Plt Count (140-440) K/mcL MPV (7.4-10.4) fL Total Counted Seg Neutrophils % (38-78) % Band Neutrophils % (0-10) % Lymphocytes % (15-49) % Monocytes % (Manual) (1-12) % Reactive Lymphocytes (0-2) % Platelet Estimate (NORMAL) RBC Morphology (NORMAL) Anisocytosis (NONE SEEN) VBG Lactic Acid (0.5-2.0) mmol/L Sodium (133-145) mmol/L Potassium (3.3-5.1) mmol/L Chloride (96-108) mmol/L Carbon Dioxide (22-30) mmol/L Anion Gap (8-16) BUN (8-23) mg/dl Creatinine (0.7-1.2) mg/dl GFR Calculation Glucose (70-105) mg/dL Calcium (8.6-10.4) mg/dl Total Bilirubin (0.0-1.0) mg/dL AST (0-37) U/l ALT (0-40) U/l Alkaline Phosphatase (39-117) U/L Total Protein (5.9-8.4) gm/dL Albumin (3.2-5.2) gm/dL Globulin (2.2-3.7) gm/dL Albumin/Globulin Ratio (1.0-2.3) Urine Color Justa Urine Appearance Hazy Urine pH 6.0 (5.0-9.0) Ur Specific [place] 1.026 (1.000-1.035) Urine Protein 100 A (NEG) mg/dL Urine Glucose (UA) Negative (NEG) mg/dL Urine Ketones 20 A (NEG) mg/dL Urine Occult Blood 0.2 A (<0.03) mg/dL Urine Nitrate Neg (NEG) Urine Bilirubin Neg (NEG) mg/dL Urine Urobilinogen Neg (NEG) mg/dL Ur Leukocyte Esterase Neg (NEG) /uL Urine RBC > 182 H (0-1) /hpf Urine WBC 20 H (0-4) /hpf Ur Squamous Epith Cells < 1 (0-4) /hpf Urine Bacteria 0 (0) /hpf Urine Mucus Many A (0) /hpf Urine Yeast (Budding) Many A (0) /hpf Ur Culture Indicated? Yes Discharge Plan Patient/Caregiver Discharge Instructions Pt seen by HOSPITAL STAFF PHARMACIST/PA only: No Clinical Impression: Decubitus ulcer of coccygeal region, stage 2, Colitis due to Clostridium difficile, Encephalopathy acute, Altered mental status Patient Disposition: Xfer As Outpt/Obs ([facility]) Follow up with: Ramonita Fitch MD [Primary Care Provider] - Prescriptions: No Action finasteride 5 mg tablet 5 mg PO HS Qty: 90 RF: 5 multivitamins 1 tab PO QDAY RF: 0 duloxetine 30 MG capsule 30 mg PO BID RF: 0 bupropion HCl 150 MG tablet sustained-release 12 hr 150 mg PO BID RF: 0 oxcarbazepine 150 mg Tablet 150 mg PO BID RF: 0 bisacodyl 10 mg Suppository 10 mg ND ONCE PRN (Reason: Constipation) RF: 0 clindamycin HCl 150 mg Capsule 300 mg PO QID RF: 0 magnesium hydroxide [Milk of Magnesia] 400 mg/5 mL Suspension 30 ml PO QDAY PRN (Reason: Constipation) RF: 0 hydrocodone-acetaminophen 7.5-325 mg Tablet 1 - 2 tab PO Q6H PRN (Reason: Pain) RF: 0 metoprolol tartrate 25 mg Tablet 12.5 mg PO BID RF: 0 Bradford-3 350 mg-235 mg- 90 mg-597 mg Capsule,Delayed Release(Dr/Ec) 1 cap PO BID RF: 0 tamsulosin 0.4 mg capsule 0.4 mg PO HS RF: 0 potassium chloride 10 mEq capsule, extended release 20 meq PO BID@08,12 RF: 0 etodolac 400 mg tablet 400 mg PO BID RF: 0 pramipexole 0.125 mg tablet 0.125 mg PO DAILY RF: 0 cholecalciferol (vitamin D3) 50,000 unit tablet 50,000 unit PO .2XW RF: 0 furosemide 80 mg tablet 30 mg PO DAILY RF: 0 aspirin 325 mg tablet 325 mg PO DAILY RF: 0 pramipexole 0.5 mg tablet 0.5 mg PO QHS RF: 0 oxybutynin chloride 15 mg tablet extended release 24hr 15 mg PO BID Qty: 60 RF: 12
[2019-10-08] MEDS: 0.9 % SODIUM CHLORIDE 1,000 ML IV SCH ×3 (04:25→20:40)
[2019-10-08 05:13] LABS: Amphetamine Screen,Urine NONE DETECTED (NONDETECTED); Barbiturate Screen,Urine NONE DETECTED (NONDETECTED); Benzodiazepines Screen,Urine NONE DETECTED (NONDETECTED); Cannabinoid Screen,Urine NONE DETECTED (NONDETECTED); Cocaine Screen,Urine NONE DETECTED (NONDETECTED); Opiate Screen,Urine SUSPECT POSITIVE (NONDETECTED); Oxycodone, Urine Screen NONE DETECTED (NONDETECTED); Phencyclidine Screen,Urine NONE DETECTED (NONDETECTED)
--- NOTE | 2019-10-08 06:07 | Cat Scan Report ---
INDICATION: Leukocytosis and coccyx wound COMPARISON: CT scan dated 02/11/2014 TECHNIQUE: Axial images were obtained through the abdomen and pelvis. Sagittally and coronally reformatted images. 80 mL Isovue 370 injected intravenously. Oral contrast material was not administered FINDINGS: Examination was initially interpreted by [facility] Examination is technically suboptimal. The arms are at the patient's side. The patient was moving throughout the examination. There is also beam hardening artifact from right hip prosthesis. Lung bases:Poorly evaluated. No detectable mass or consolidation Liver:Negative. No focal intrahepatic mass. No focal abnormality. Liver contour is smooth. No evidence for cirrhosis Gallbladder, bilary:No calcified gallstones. No gallbladder wall thickening. No dilated intra or extrahepatic bile ducts. Spleen:No splenomegaly. Normal enhancement of splenic and portal veins. Pancreas:No pancreatic mass. No peripancreatic abnormality Adrenal glands:Negative Kidneys, ureters, bladder: There are bilateral renal cysts. In the upper pole of the left kidney there is a 3.1 cm cyst. The wall is irregular, especially in its inferior portion. Further evaluation is recommended. Ultrasound and/or six-month CT follow-up is appropriate. The other renal cysts appear to be simple cysts. There is no hydronephrosis. No obstructing or nonobstructing calculi. No perinephric abnormality There is no hydroureter. No ureteral stone No bladder calculi or detectable mass. There is a Culver catheter in place Gastrointestinal: Abnormal sigmoid colon. There is wall thickening and stratification. There is prominent vasa recta consistent with hyperemia. There is mild pericolonic infiltration. There is no discrete mass. Findings are consistent with sigmoid colitis. Colon is otherwise negative. No detectable mass. There is colon interposed between the liver and anterior abdominal wall. Small bowel is negative. No mechanical small bowel obstruction. Stomach and duodenum are unremarkable Appendix: The appendix is not well visualized. No evidence for appendicitis Vascular:There is calcification of the abdominal aorta. No abdominal aortic aneurysm. There is calcification of the common iliac arteries and external iliac arteries. Superior mesenteric artery is opacified without evidence for significant stenosis. Inferior mesenteric artery is not well visualized. Lymphatic:No retroperitoneal or mesenteric adenopathy Mesentery, peritoneum: No free intraperitoneal fluid. No mesenteric or retroperitoneal mass. There is no intra-abdominal abscess. No pneumoperitoneum. Reproductive:Prostate is not enlarged Musculoskeletal:Multilevel degenerative disc disease. No lumbar compression fracture. There is lumbar scoliosis. There is spinal canal stenosis at the L3-4 level. Multilevel degenerative facet arthropathy. Sacrum is negative. Pelvis is negative. Patient has undergone previous right total hip arthroplasty IMPRESSION: 1. Findings consistent with sigmoid colon colitis. 2. Bilateral renal cysts. Upper pole left renal cyst may have a somewhat thickened irregular wall. Further evaluation recommended with ultrasound or follow-up CT scan 3. Multilevel degenerative disc disease and facet arthropathy. Spinal canal stenosis at L3-4 4. Technically limited evaluation as described above The exam was performed using radiation dose optimization techniques including, but not limited to, automated exposure control, adjustment of the mA and/or kV according to patient size and use of iterative reconstruction technique. Interpreted and Authenticated by: Christian Chiang 10/08/19
--- NOTE | 2019-10-08 06:45 | Internal Med History&Physical ---
HPI History of Present Illness Patient information: Note initiated : 10/08/19 at 6:45 am Service Date, if different from initiated Date: [] Patient: Reji Stapleton a 69 y/o M admitted on 10/08/19 for AMS. Chief Complaint: Altered mental status History of present illness: Mr. Stapleton is a 69 year old M with multiple past medical problems including diabetes, history of BKA, hypertension, BPH, sleep apnea, PAD who was and [facility] from 10/01-10/05 with sepsis from left lower lobe healthcare associated pneumonia. He had marked encephalopathy at that presentation. He had also recently been treated for C. difficile with fidaxomicin. He was initially treated with vancomycin, because he had MRSA positive PCR the nares and oropharynx, cefepime and metronidazole. After discharge on 10/05 to [facility], he was sent back to the ED that day for mental status changes, apparently because he was not taking oral medications (per nursing staff who cared for him at the [facility] ED). In speaking with 1 of the nurses who was working at the ED, who is now taking care of the patient at this facility today (Osman) the patient initially was not interactive, follow commands. After some physical stimulants, the patient became more alert, intera ctive, had an appetite, was talking with staff and appeared to be at his baseline. After discussing with patient's PCP of sent back to [facility]. On 10/06, the patient was sent [facility] ED for mental status changes. Patient was at times talkative and other times not. He was evaluated. He is found to have an elevated white count of 14,000. Is continuing to have loose stools (being treated for C. difficile). After several hours of evaluation, and discussion with his PCP, the patient was hospitalized early this morning for acute mental status changes. Later this morning when I see the patient, he is awake, is alert he is talkative and he is eating breakfast. According to his nurse, Osman, knows him from [facility], this appears to be the patient's baseline. Initially we were consi dering MRI to evaluate for stroke. He does carry a diagnosis of multiple sclerosis as well. However he now appears to be at baseline. As noted times the patient becomes frustrated with the medical system, refuses to interact or participate in his care. He also clearly has episodes of encephalopathy associated with acute infectious illness as well. Review of Systems Review of systems: Patient denies nausea, vomiting, dyspnea, fever, chills. He states he does not know why he was sent from [facility] to [facility]. The patient then tires of answering review of systems questions and further ROS cannot be obtained. PFSH PFSH All Active Problems (Updated 10/08/19 @ 02:39 by Keo Jose DO) Colitis due to Clostridium difficile (Acute) Encephalopathy acute (Acute) Altered mental status (Acute) Chronic wound of extremity (Acute) Decubitus ulcer of coccygeal region, stage 2 (Acute) Chronic narcotic use (Chronic) Foot ulcer, right (Acute) Cellulitis (Acute) S/P BKA (below knee amputation) (Acute) Impaired ambulation (Acute) Fever (Acute) Ulcer of right heel (Acute) Obesity, morbid (more than 100 lbs over ideal weight or BMI > 40) (Chronic) Dysmetabolic syndrome X (Chronic) Multiple sclerosis (Chronic) Hyperlipidemia (Chronic) Urge incontinence (Chronic) Tabes dorsalis (Chronic) Osteoarthrosis (Chronic) Neuropathy (Chronic) Neurogenic bladder (Chronic) Kidney stones (Chronic) Hearing loss (Chronic) Cannabis abuse (Chronic) BPH without obstruction/lower urinary tract symptoms (Chronic) Medical History (Updated 10/08/19 @ 02:39 by Keo Jose DO) BPH without obstruction/lower urinary tract symptoms (Chronic) Cannabis abuse (Chronic) Chronic narcotic use (Chronic) Dysmetabolic syndrome X (Chronic) Dyspnea (Inactive) Hearing loss (Chronic) Hemorrhoids, internal (Resolved) Hyperlipidemia (Chronic) Hypoxia (Resolved) Kidney stones (Chronic) Lipoma of skin and subcutaneous tissue of face (Resolved) Multiple sclerosis (Chronic) Neurogenic bladder (Chronic) Neuropathy (Chronic) Nocturia (Resolved) 02/09/2014 Obesity, morbid (more than 100 lbs over ideal weight or BMI > 40) (Chronic) Osteoarthrosis (Chronic) Shortness of breath (Resolved) Skin benign neoplasm (Resolved) Tabes dorsalis (Chronic) Ureteral calculus (Resolved) 02/09/2014 Urge incontinence (Chronic) 02/09/2014 Surgical History (Updated 10/10/18 @ 17:00 by Chin Otero MD) History of below knee amputation (Acute) Left History of foot surgery (Resolved) ankle repair History of hip surgery (Resolved) 10/04/2013 Hx of adenoidectomy (Resolved) Hx of cataract surgery (Acute) bilateral Hx of colonoscopy (Resolved) 2003 Hx of knee surgery (Resolved) Hx of tonsillectomy (Resolved) Family History father Secondary malignant neoplasm of bone Diabetes mellitus Carcinoma in situ of skin sister Malignant neoplasm of breast grandmother (paternal) Diabetes mellitus Social History (Updated 04/01/18 @ 13:36 by Red Georges MD) smoking status: Unknown if ever smoked alcohol intake frequency: holiday/special occasion only substance use type: does not use and marijuana MEDS/ALLERGIES Home Medications and Allergies Home Medications Medication Instructions Recorded Confirmed Type multivitamins 1 tab PO QDAY 08/03/14 10/07/19 History etodolac 400 mg tablet 400 mg PO BID 08/02/15 10/07/19 History potassium chloride 10 mEq 10 meq PO BID@08,12 cap 08/02/15 10/08/19 History capsule,extended release cholecalciferol (vitamin D3) 1,250 50,000 unit PO .2XW tab 02/02/16 10/07/19 History mcg (50,000 unit) tablet aspirin 325 mg tablet 325 mg PO DAILY 03/28/17 10/07/19 History oxybutynin chloride 15 mg 15 mg PO BID #60 tab 04/01/18 10/07/19 Rx tablet,extended release 24 hr pramipexole 0.125 mg tablet 0.125 mg PO DAILY tab 04/01/18 10/07/19 History pramipexole 0.5 mg tablet 0.5 mg PO QHS 04/01/18 10/07/19 History bupropion HCl 150 mg PO BID 10/10/18 10/07/19 History finasteride 5 mg tablet 5 mg PO HS #90 tab 10/21/18 10/07/19 Rx oxcarbazepine 150 mg PO BID 08/28/19 10/07/19 History bisacodyl 10 mg WA ONCE PRN 10/07/19 10/07/19 History clindamycin HCl 300 mg PO QID 10/07/19 10/07/19 History hydrocodone-acetaminophen 1 - 2 tab PO Q6H PRN 10/07/19 10/07/19 History magnesium hydroxide [Milk of 30 ml PO QDAY PRN 10/07/19 10/07/19 History Magnesia] metoprolol tartrate 12.5 mg PO BID 10/07/19 10/07/19 History omega 2-ure-jtm-fish oil [[place]-3] 1 cap PO BID 10/07/19 10/07/19 History tamsulosin 0.4 mg PO HS 10/07/19 10/07/19 History Lactobacillus acidophilus 1 tab PO TID 10/08/19 10/08/19 History duloxetine 30 mg PO BID 10/08/19 10/08/19 History fidaxomicin 200 mg PO BID 10/08/19 10/08/19 History furosemide 30 mg PO QAM 10/08/19 10/08/19 History Allergies Allergy/AdvReac Type Severity Reaction Status Date / Time Cefprozil [From Cefzil] AdvReac Mild Diarrhea Verified 10/07/19 18:25 pregabalin [From Lyrica] AdvReac Mild swelling Verified 10/07/19 18:25 of hands and feet sertraline [From Zoloft] AdvReac Mild swelling Verified 10/07/19 18:25 of hands and feet EXAM Constitutional Vitals: Temp Pulse Resp BP Pulse Ox 98.2 F 77 12 145/90 97 10/08/19 04:46 10/08/19 04:46 10/08/19 04:46 10/08/19 04:46 10/08/19 04:46 GENERAL: Alert, in no acute distress. Cooperative, appears stated age. HEENT: Atraumatic. Pupils equal, conjunctiva clear, no scleral icterus. Hearing grossly intact. Oropharynx with moist mucous membranes tongue midline. NECK: Supple without meningismus, no thyromegaly RESPIRATORY: Breath sounds clear bilaterally without wheezes or rhonchi. Respiratory effort is unlabored. CARDIOVASCULAR: Regular rate and rhythm, no murmur gallop or rub. No edema. Carotid pulses 2+. GI: Abdomen soft, nontender, no guarding or rebound. Bowel sounds are present. MUSCULOSKELETAL: No joint erythema or swelling, normal range of motion in all extremities. S/P BKA. SKIN: Excoriation in the perineum and buttocks from frequent diarrhea. NEUROLOGIC: Cranial nerves II through XII grossly intact. Muscle mass diminished. Strength 5-/5 in the upper and lower extremities with a generalized weakness. PSYCHIATRIC: Alert, oriented to person and place. Not sure why he was sent to the hospital yesterday. According to staff know him, he displays his usual mood and affect. DATA Data Completed and Pending Labs: Labs from last 24 hours 10/08/19 10/08/19 10/08/19 20:39 05:10 05:10 WBC Pending RBC Pending Hgb Pending Hct Pending MCV Pending MCH Pending MCHC Pending RDW Pending Plt Count Pending MPV Pending Total Counted Seg Neutrophils % Band Neutrophils % Lymphocytes % Monocytes % (Manual) Reactive Lymphocytes Platelet Estimate RBC Morphology Anisocytosis VBG Lactic Acid Sodium Pending Potassium Pending Chloride Pending Carbon Dioxide Pending Anion Gap Pending BUN Pending Creatinine Pending GFR Calculation Pending Glucose Pending Uric Acid Pending Calcium Pending Phosphorus Pending Magnesium Pending Total Bilirubin Pending Direct Bilirubin Pending GGT Pending AST Pending ALT Pending Alkaline Phosphatase Pending Lactate Dehydrogenase Pending Total Protein Pending Albumin Pending Globulin Pending Albumin/Globulin Ratio Pending Triglycerides Pending Urine Color Urine Appearance Urine pH Ur Specific [place] Urine Protein Urine Glucose (UA) Urine Ketones Urine Occult Blood Urine Nitrate Urine Bilirubin Urine Urobilinogen Ur Leukocyte Esterase Urine RBC Urine WBC Ur Squamous Epith Cells Urine Bacteria Urine Mucus Urine Yeast (Budding) Ur Culture Indicated? Urine Opiates Screen Suspect positive A Ur Opiates Confirm Pending Ur Oxycodone Screen None detected Urine Methadone Screen None detected Ur Methadone Confirm Pending Ur Barbiturates Screen None detected Ur Barbiturate Confirm Pending Ur Phencyclidine Scrn None detected Urine PCP Confirm Pending Ur Amphetamines Screen None detected U Amphetamines Confirm Pending U Benzodiazepines Scrn None detected U Benzodiazepine Confm Pending Urine Cocaine Screen None detected Urine Cocaine Confirm Pending U Cannabinoids Confirm Pending U Marijuana (THC) Screen None detected 10/07/19 10/07/19 10/07/19 20:39 18:34 18:34 WBC RBC Hgb Hct MCV MCH MCHC RDW Plt Count MPV Total Counted Seg Neutrophils % Band Neutrophils % Lymphocytes % Monocytes % (Manual) Reactive Lymphocytes Platelet Estimate RBC Morphology Anisocytosis VBG Lactic Acid 1.0 Sodium 142 Potassium 3.3 Chloride 106 Carbon Dioxide 24 Anion Gap 12.0 BUN 13 Creatinine 1.0 GFR Calculation 78 Glucose 135 H Uric Acid Calcium 8.5 L Phosphorus Magnesium Total Bilirubin 0.3 Direct Bilirubin GGT AST 32 ALT 26 Alkaline Phosphatase 78 Lactate Dehydrogenase Total Protein 6.6 Albumin 2.7 L Globulin 3.9 H Albumin/Globulin Ratio 0.7 L Triglycerides Urine Color Justa Urine Appearance Hazy Urine pH 6.0 Ur Specific [place] 1.026 Urine Protein 100 A Urine Glucose (UA) Negative Urine Ketones 20 A Urine Occult Blood 0.2 A Urine Nitrate Neg Urine Bilirubin Neg Urine Urobilinogen Neg Ur Leukocyte Esterase Neg Urine RBC > 182 H Urine WBC 20 H Ur Squamous Epith Cells < 1 Urine Bacteria 0 Urine Mucus Many A Urine Yeast (Budding) Many A Ur Culture Indicated? Yes Urine Opiates Screen Ur Opiates Confirm Ur Oxycodone Screen Urine Methadone Screen Ur Methadone Confirm Ur Barbiturates Screen Ur Barbiturate Confirm Ur Phencyclidine Scrn Urine PCP Confirm Ur Amphetamines Screen U Amphetamines Confirm U Benzodiazepines Scrn U Benzodiazepine Confm Urine Cocaine Screen Urine Cocaine Confirm U Cannabinoids Confirm U Marijuana (THC) Screen 10/07/19 18:34 WBC 14.2 H RBC 4.28 L Hgb 11.5 L Hct 35.0 L MCV 81.8 MCH 26.9 MCHC 32.9 RDW 18.3 H Plt Count 447 H MPV 8.5 Total Counted 100 Seg Neutrophils % 60 Band Neutrophils % 1 Lymphocytes % 32 Monocytes % (Manual) 6 Reactive Lymphocytes 1 Platelet Estimate Increased A RBC Morphology Abnormal Anisocytosis 1+ A VBG Lactic Acid Sodium Potassium Chloride Carbon Dioxide Anion Gap BUN Creatinine GFR Calculation Glucose Uric Acid Calcium Phosphorus Magnesium Total Bilirubin Direct Bilirubin GGT AST ALT Alkaline Phosphatase Lactate Dehydrogenase Total Protein Albumin Globulin Albumin/Globulin Ratio Triglycerides Urine Color Urine Appearance Urine pH Ur Specific [place] Urine Protein Urine Glucose (UA) Urine Ketones Urine Occult Blood Urine Nitrate Urine Bilirubin Urine Urobilinogen Ur Leukocyte Esterase Urine RBC Urine WBC Ur Squamous Epith Cells Urine Bacteria Urine Mucus Urine Yeast (Budding) Ur Culture Indicated? Urine Opiates Screen Ur Opiates Confirm Ur Oxycodone Screen Urine Methadone Screen Ur Methadone Confirm Ur Barbiturates Screen Ur Barbiturate Confirm Ur Phencyclidine Scrn Urine PCP Confirm Ur Amphetamines Screen U Amphetamines Confirm U Benzodiazepines Scrn U Benzodiazepine Confm Urine Cocaine Screen Urine Cocaine Confirm U Cannabinoids Confirm U Marijuana (THC) Screen Impressions Impressions: CT of the abdomen pelvis IMPRESSION: 1. Findings consistent with sigmoid colon colitis. 2. Bilateral renal cysts. Upper pole left renal cyst may have a somewhat thickened irregular wall. Further evaluation recommended with ultrasound or follow-up CT scan 3. Multilevel degenerative disc disease and facet arthropathy. Spinal canal stenosis at L3-4 4. Technically limited evaluation as described above Chest x-ray IMPRESSION: 1. Mild bibasilar parenchymal density 2. No definite interval change since 09/21/[address] IMPRESSION: Negative noncontrast enhanced brain CT scan A/P Assessment and plan (1) Encephalopathy acute: Status: Acute Narrative A/P Narrative: 69-year-old gentleman with multiple medical problems, recently hospitalized for sepsis from healthcare acquired pneumonia, also being treated concurrently for C. difficile colitis, presents to the ED at this facility with complaints of altered mental status from his living facility. Had been discharged from [facility] the day before with a subsequent ED visit to [facility]. He was felt to be unchanged during the ED visit and at his baseline and was sent back. Encephalopathy. Patient did have a encephalopathy associated with his infection last weekend when he was hospitalized at [facility]. Currently, according to staff who have worked with him at both here and [facility] as he is at his baseline. When I see him he is awake, alert, eating breakfast and talkative. Behaviorally, at times he does become tired of being in hospitals, becomes withdrawn, refuses to answer or interact with care. Query whether that may have been part of his presentation on the evening of 10/[address] scan shows no evidence of acute change. CT of the abdomen pelvis with some evidence of colitis, though he is currently being treated for C. difficile so that would be expected. No new other findings. His white count was elevated 14,000 at presentation, without other evidence of other infection (abnormal urine analysis but does have a Culver in place). White count decreased to 12,000, though did receive 1 dose of Zosyn in the ED. Reinstate home medications Monitor for mental status changes Monitor labs, white count C. difficile colitis. Currently under treatment. Continue fodixamicin Stage II sacral pressure ulcer. No evidence of tracking or deeper infection on CT of the abdomen pelvis. Wound care Recent healthcare acquired pneumonia. Was treated with cefepime and metronidazole with vancomycin. Progress notes are available to review at this time, but the discharge summary is not transmitted. He is on clindamycin presumably to continue treatment for his pneumonia. This may be worsening his diarrhea as he is currently being treated for C. difficile. It is possible that he did suffer some dehydration which may have affected his mental status. We will stop antibiotics at this time. Monitor CODE STATUS: Full code
[2019-10-08 07:04] LABS: Basophils # (Auto) 0.06 K/mcL (0.00-0.30); Basophils % (Auto) 0.5 % (0.0-2.0); Eosinophils # (Auto) 0.14 K/mcL (0.00-0.70); Eosinophils % (Auto) 1.1 % (0.0-7.0); Granulocytes % (Auto) 60.8 % (38.0-78.0); Hematocrit 33.2 % (40.1-51.0); Hemoglobin 10.6 g/dL (13.7-17.5); Lymphocytes # (Auto) 3.81 K/mcL (1.50-4.80); Lymphocytes % (Auto) 30.1 % (15.5-49.0); Mean Cell Volume 83.4 fL (80.0-100.0); Mean Corpuscular HGB Conc 31.9 g/dL (31.0-36.0); Mean Platelet Volume 8.7 fL (7.4-10.4); Monocytes # (Auto) 0.95 K/mcL (0.10-0.90); Monocytes % (Auto) 7.5 % (1.0-12.0); Platelet Count 409 K/mcL (140-440); RBC 3.98 M/mcL (4.63-6.08); Red Cell Distribution Width 18.6 % (11.5-14.5); WBC 12.7 K/mcL (4.50-11.00)
[2019-10-08 07:34] LABS: Bilirubin,Direct < 0.2 mg/dL (0.0-0.3)
[2019-10-08 07:46] LABS: ALT/SGPT 22 U/l (0-40); AST/SGOT 28 U/l (0-37); Albumin 2.4 gm/dL (3.2-5.2); Albumin/Globulin Ratio 0.6 (1.0-2.3); Alkaline Phosphatase 64 U/L (39-117); Bilirubin,Total 0.4 mg/dL (0.0-1.0); Blood Urea Nitrogen 12 mg/dl (8-23); Calcium 8.3 mg/dl (8.6-10.4); Carbon Dioxide 23 mmol/L (22-30); Chloride 109 mmol/L (96-108); Globulin 3.7 gm/dL (2.2-3.7); Glomerular Filtration Rate 92; Glucose 104 mg/dL (70-105); Lactate Dehydrogenase 204 U/L (94-250); Phosphorous 2.8 mg/dL (2.7-4.5); Triglycerides 116 mg/dl (<150); Uric Acid 3.5 mg/dL (2.5-8.0)
[2019-10-08] MEDS ORDERED: MAGNESIUM HYDROXIDE 30 ML ORAL.SUSP PO PRN (12:44)
--- NOTE | 2019-10-08 13:29 | Internal Med Progress Note ---
SUBJECTIVE Subjective Patient information: Note initiated : 10/08/19 at 1:24 pm Service Date, if different from initiated Date: [] Patient: Reji Stapleton a 69 y/o M admitted on 10/08/19 for AMS. Chief Complaint: [] Interval history: History of present illness: Mr. Stapleton is a 69 year old M with multiple past medical problems including diabetes, history of BKA, hypertension, BPH, sleep apnea, PAD who was and [facility] from 10/01-10/05 with sepsis from left lower lobe healthcare associated pneumonia. He had marked encephalopathy at that presentation. He had also recently been treated for C. difficile with fidaxomicin. He was initially treated with vancomycin, because he had MRSA positive PCR the nares and oropharynx, cefepime and metronidazole. After discharge on 10/05 to [facility], he was sent back to the ED that day for mental status changes, apparently because he was not taking oral medications (per nursing staff who cared for him at the [facility] ED). In speaking with 1 of the nurses who was working at the ED, who is now taking care of the patient at this facility today (Osman) the patient initially was not interactive, follow commands. After some physical stimulants, the patient became more alert, interactive, had an appetite, was talking with staff and appeared to be at his baseline. After discussing with patient's PCP of sent back to [facility]. On 10/06, the patient was sent [facility] ED for mental status changes. Patient was at times talkative and other times not. He was evaluated. He is found to have an elevated white count of 14,000. Is continuing to have loose stools (being treated for C. difficile). After several hours of evaluation, and discussion with his PCP, the patient was hospitalized early this morning for acute mental status changes. Later this morning when I see the patient, he is awake, is alert he is talkative and he is eating breakfast. According to his nurse, Osman, knows him from Health system, this appears to be the patient's baseline. Initially we were considering MRI to evaluate for stroke. He does carry a diagnosis of multiple sclerosis as well. However he now appears to be at baseline. As noted times the patient becomes frustrated with the medical system, refuses to interact or participate in his care. He also clearly has episodes of encephalopathy associ ated with acute infectious illness as well. 10/08 Constitutional Vitals: Vital Signs Temp Pulse Resp BP Pulse Ox 98.5 F 88 20 133/67 94 10/08/19 12:00 10/08/19 11:19 10/08/19 12:00 10/08/19 12:00 10/08/19 12:00 Period Temp Pulse Resp BP Sys/Castillo Pulse Ox Last 24 Hr 97.2 F-99.6 F 59-111 12-22 112-169/66-96 88-98 Intake and Output 10/07/19 10/08/19 10/08/19 21:59 05:59 13:59 Intake Total 1065 50 1480 Balance 1065 50 1480 Weight 130.635 kg 124.539 kg Intake & Output: Intake & Output 10/07/19 10/08/19 10/08/19 21:59 05:59 13:59 Intake Total 1065 50 1480 Balance 1065 50 1480 Weight 130.635 kg 124.539 kg Intake: IV 1065 50 1000 Sodium Chloride 0.9% 1,000 ml @ 1000 1000 125 mls/hr IV .Q8H COUNT INCLUDES THE [facility] Rx#: [id number] Zosyn 3.375 gm In Dextrose 5% 50 in Water 50 ml @ 100 mls/hr IV ONCE ONE Rx#:[id number] Oral 480 Other: Urine Appearance Cloudy Uretheral (Culver) Clear Clear Urine Color Dark Yellow Uretheral (Culver) Dark Yellow Dark Yellow Urine Odor Strong Stool Size Copious Large Stool Color Brown Brown Stool Consistency Liquid Liquid Loose # of times incontinent of 1 3 Bowels Exam: General: Alert, Awake, No acute Distress Eyes/N/T: EOMI, Head/Neck: neck supple, CV: RRR, No murmurs, Pulm: Clear b/l, no wheezing/rhonchi/rales Abd: soft, nontender, +BS x4 Ext: no clubbing/cyanosis/edema Neuro: Alert, no focal deficits, moves all extremities, C Skin: warm/dry OBJ DATA Labs CBC & Chem 7: 10/08/19 05:10 10/08/19 05:10 Labs: Abnormal Lab Results 10/08/19 10/08/19 10/08/19 20:39 05:10 05:10 WBC 12.7 H RBC 3.98 L Hgb 10.6 L Hct 33.2 L RDW 18.6 H Plt Count Fisher # (Auto) 0.95 H Platelet Estimate Anisocytosis Chloride 109 H Glucose Calcium 8.3 L Albumin 2.4 L Globulin Albumin/Globulin Ratio 0.6 L Urine Protein Urine Ketones Urine Occult Blood Urine RBC Urine WBC Urine Mucus Urine Yeast (Budding) Urine Opiates Screen Suspect positive A 10/07/19 10/07/19 10/07/19 20:39 18:34 18:34 WBC 14.2 H RBC 4.28 L Hgb 11.5 L Hct 35.0 L RDW 18.3 H Plt Count 447 H Fisher # (Auto) Platelet Estimate Increased A Anisocytosis 1+ A Chloride Glucose 135 H Calcium 8.5 L Albumin 2.7 L Globulin 3.9 H Albumin/Globulin Ratio 0.7 L Urine Protein 100 A Urine Ketones 20 A Urine Occult Blood 0.2 A Urine RBC > 182 H Urine WBC 20 H Urine Mucus Many A Urine Yeast (Budding) Many A Urine Opiates Screen Meds: Medications Hydrocodone Bitart/Acetaminophen ([place] 7.5/325mg) 1 - 2 tab PO Q6H PRN; Protocol PRN Reason: Pain Aspirin (Ecotrin) 325 mg PO DAILY UZMA Bupropion HCl (Wellbutrin Sr) 150 mg PO BID UZMA Duloxetine HCl (Cymbalta) 30 mg PO BID UZMA Etodolac (Lodine) 400 mg PO BID UZMA Finasteride (Proscar) 5 mg PO HS UZMA Furosemide (Lasix) 30 mg PO QAM UZMA Sodium Chloride (Sodium Chloride 0.9%) 1,000 mls @ 125 mls/hr IV .Q8H COUNT INCLUDES THE [facility] Last Admin: 10/08/19 12:57 Dose: 125 mls/hr Documented by: Iron Carb/Multivit/Health Tech/Folic Acid (Multivitamin W/Minerals) 1 tab PO DAILY UZMA Lactobacillus Rhamnosus (Culturelle) 1 cap PO TID UZMA Magnesium Hydroxide (Milk Of Magnesia) 30 ml PO QDAY PRN PRN Reason: Constipation Metoprolol Tartrate (Lopressor) 12.5 mg PO BID UZMA Oxybutynin Chloride (Ditropan) 15 mg PO BID UZMA Oxcarbazepine 150 Mg (Tab) 150 dose PO BID UZMA Potassium Chloride (Kdur) 10 meq PO BID@0800,1200 COUNT INCLUDES THE [facility] Pramipexole Dihydrochloride (Mirapex) 0.5 mg PO QHS UZMA Pramipexole Dihydrochloride (Mirapex) 0.125 mg PO DAILY UZMA Tamsulosin HCl (Flomax) 0.4 mg PO HS UZMA A/P Narrative A/P Narrative: A: *Encephalopathy: Pt did have encephalopathy associated with his infection last weekend when hospitalized at Health system. -Currently, according to staff who have worked with him at both here and [facility] as he is at his baseline. -Behaviorally, at times he does become tired of being in hospitals, becomes withdrawn, refuses to answer or interact with care. Query whether that may have been part of his presentation on the evening of 10/06 at this hospital. -CT scan shows no evidence of acute change. -CT of the abdomen pelvis with some evidence of colitis, though he is currently being treated for C. difficile. -No new other findings. His white count was elevated 14,000 at presentation, without other evidence of other infection -(abnormal urine analysis but does have a Culver in place). -White count decreased to 12,000, though did receive 1 dose of Zosyn in the ED. *C. difficile colitis: Currently under treatment. *Stage II sacral pressure ulcer: No evidence of tracking or deeper infection on CT of the abdomen pelvis. *Recent healthcare acquired pneumonia: Was treated with cefepime and metronidazole with vancomycin. He is on clindamycin presumably to continue treatment for his pneumonia. This may be worsening his diarrhea as he is currently being treated for C. difficile. It is possible that he did suffer some dehydration which may have affected his mental status. * P: Reinstate home medications Monitor for mental status changes Monitor labs, white count Continue fodixamicin Wound care We will stop antibiotics at this time. Monitor - -ppx: lovenox Time Spent With Patient Time: Total time spent is greater than 50% in coordination of care (as documented) at patient's floor/unit and/or counseling patient:
[2019-10-08] MEDS: LACTOBACILLUS 1 CAPSULE PO SCH ×2 (15:30→20:47)
[2019-10-08] MEDS: OXYBUTYNIN CHLORIDE 5 MG TABLET PO SCH (20:46)
[2019-10-08] MEDS: DULoxetine 30 MG CAPSULE PO SCH (20:47)
[2019-10-08] MEDS: HYDROCODONE/APAP 7.5/325MG TABLET PO PRN (20:47)
[2019-10-08] MEDS: METOPROLOL TARTRATE 25 MG TABLET PO SCH (20:47)
[2019-10-08] MEDS: buPROPion 150 MG TAB.SR.12H PO SCH (20:47)
[2019-10-08] MEDS: FIDAXOMICIN 200 MG TABLET PO SCH (20:48)
[2019-10-08] MEDS ORDERED: FINASTERIDE 5 MG TABLET PO SCH (21:00)
[2019-10-08] MEDS ORDERED: ETODOLAC 400 MG TABLET PO SCH (21:00)
[2019-10-08] MEDS ORDERED: TAMSULOSIN 0.4 MG CAPSULE PO SCH (21:00)
[2019-10-08] MEDS ORDERED: PRAMIPEXOLE 0.25 MG TABLET PO SCH (21:00)
[2019-10-09] MEDS: HYDROCODONE/APAP 7.5/325MG TABLET PO PRN (02:26)
[2019-10-09] MEDS: 0.9 % SODIUM CHLORIDE 1,000 ML IV SCH (04:42)
[2019-10-09 06:57] LABS: Basophils # (Auto) 0.06 K/mcL (0.00-0.30); Basophils % (Auto) 0.7 % (0.0-2.0); Eosinophils % (Auto) 4.5 % (0.0-7.0); Granulocytes % (Auto) 42.9 % (38.0-78.0); Hematocrit 29.7 % (40.1-51.0); Hemoglobin 9.5 g/dL (13.7-17.5); Lymphocytes # (Auto) 3.76 K/mcL (1.50-4.80); Lymphocytes % (Auto) 42.4 % (15.5-49.0); Mean Cell Volume 85.1 fL (80.0-100.0); Mean Platelet Volume 8.6 fL (7.4-10.4); Monocytes # (Auto) 0.84 K/mcL (0.10-0.90); Monocytes % (Auto) 9.5 % (1.0-12.0); Platelet Count 345 K/mcL (140-440); RBC 3.49 M/mcL (4.63-6.08); Red Cell Distribution Width 19.2 % (11.5-14.5); WBC 8.9 K/mcL (4.50-11.00)
[2019-10-09 07:11] LABS: Blood Urea Nitrogen 8 mg/dl (8-23); Calcium 8.1 mg/dl (8.6-10.4); Carbon Dioxide 22 mmol/L (22-30); Chloride 108 mmol/L (96-108); Glomerular Filtration Rate 92; Glucose 98 mg/dL (70-105)
--- NOTE | 2019-10-09 07:38 | Internal Med Progress Note ---
SUBJECTIVE Subjective Patient information: Note initiated : 10/09/19 at 7:36 am Service Date, if different from initiated Date: [] Patient: Reji Stapleton a 69 y/o M admitted on 10/08/19 for AMS. Chief Complaint: [] Interval history: History of present illness: Mr. Stapleton is a 69 year old M with multiple past medical problems including diabetes, history of BKA, hypertension, BPH, sleep apnea, PAD who was and [facility] from 10/01-10/05 with sepsis from left lower lobe healthcare associated pneumonia. He had marked encephalopathy at that presentation. He had also recently been treated for C. difficile with fidaxomicin. He was initially treated with vancomycin, because he had MRSA positive PCR the nares and oropharynx, cefepime and metronidazole. After discharge on 10/05 to [facility], he was sent back to the ED that day for mental status changes, apparently because he was not taking oral medications (per nursing staff who cared for him at the [facility] ED). In speaking with 1 of the nurses who was working at the ED, who is now taking care of the patient at this facility today (Osman) the patient initially was not interactive, follow commands. After some physical stimulants, the patient became more alert, interactive, had an appetite, was talking with staff and appeared to be at his baseline. After discussing with patient's PCP of sent back to [facility]. On 10/06, the patient was sent [facility] ED for mental status changes. Patient was at times talkative and other times not. He was evaluated. He is found to have an elevated white count of 14,000. Is continuing to have loose stools (being treated for C. difficile). After several hours of evaluation, and discussion with his PCP, the patient was hospitalized early this morning for acute mental status changes. Later this morning when I see the patient, he is awake, is alert he is talkative and he is eating breakfast. According to his nurse, Osman, knows him from [facility], this appears to be the patient's baseline. Initially we were considering MRI to evaluate for stroke. He does carry a diagnosis of multiple sclerosis as well. However he now appears to be at baseline. As noted times the patient becomes frustrated with the medical system, refuses to interact or participate in his care. He also clearly has episodes of encephalopathy associ ated with acute infectious illness as well. 10/08 Appears tired but answering questions and appropriately. No overnight events or new complaints. Patient slept well. Diarrhea frequency decreasing. Leukocytosis resolved. Review of Systems: denies headache/fever/chills/nausea/vomiting/chest or abdominal pain/cough/dyspnea. Otherwise see above. Constitutional Vitals: Vital Signs Temp Pulse Resp BP Pulse Ox 97.3 F 78 16 148/71 96 10/09/19 04:00 10/09/19 04:00 10/09/19 04:00 10/09/19 04:00 10/09/19 04:00 Period Temp Pulse Resp BP Sys/Castillo Pulse Ox Last 24 Hr 97.2 F-98.6 F 78-88 16- 133-169/66-75 94-98 Intake and Output 10/08/19 10/09/19 10/09/19 21:59 05:59 13:59 Intake Total 965 1000 Output Total 525 450 Balance 440 550 Weight 124.829 kg Intake & Output: Intake & Output 10/08/19 10/09/19 10/09/19 21:59 05:59 13:59 Intake Total 965 1000 Output Total 525 450 Balance 440 550 Weight 124.829 kg Intake: IV 965 1000 Sodium Chloride 0.9% 1,000 ml @ 965 1000 125 mls/hr IV .Q8H [facility] Rx#: [id number] Tube Feeding 0 Output: Urine Catheter Amount 525 450 Other: Urine Appearance Clear Clear Urine Color Light Justa Dark Yellow Stool Size Moderate Stool Color Brown Stool Consistency Liquid Loose # of times incontinent of 1 Bowels Exam: General: Alert, Awake, No acute Distress Eyes/N/T: EOMI, Head/Neck: neck supple, CV: RRR, No murmurs, Pulm: Clear b/l, no wheezing/rhonchi/rales Abd: soft, nontender, +BS x4 Ext: no clubbing/cyanosis/edema Neuro: Alert, no focal deficits, moves all extremities, Skin: warm/dry OBJ DATA Labs CBC & Chem 7: 10/09/19 04:51 10/09/19 04:51 Labs: Abnormal Lab Results 10/09/19 10/09/19 10/08/19 04:51 04:51 20:39 WBC RBC 3.49 L Hgb 9.5 L Hct 29.7 L RDW 19.2 H Plt Count [place] # (Auto) Platelet Estimate Anisocytosis Potassium 3.2 L Chloride Glucose Calcium 8.1 L Albumin Globulin Albumin/Globulin Ratio Urine Protein Urine Ketones Urine Occult Blood Urine RBC Urine WBC Urine Mucus Urine Yeast (Budding) Urine Opiates Screen Suspect positive A 10/08/19 10/08/19 10/07/19 05:10 05:10 20:39 WBC 12.7 H RBC 3.98 L Hgb 10.6 L Hct 33.2 L RDW 18.6 H Plt Count [place] # (Auto) 0.95 H Platelet Estimate Anisocytosis Potassium Chloride 109 H Glucose Calcium 8.3 L Albumin 2.4 L Globulin Albumin/Globulin Ratio 0.6 L Urine Protein 100 A Urine Ketones 20 A Urine Occult Blood 0.2 A Urine RBC > 182 H Urine WBC 20 H Urine Mucus Many A Urine Yeast (Budding) Many A Urine Opiates Screen 10/07/19 10/07/19 18:34 18:34 WBC 14.2 H RBC 4.28 L Hgb 11.5 L Hct 35.0 L RDW 18.3 H Plt Count 447 H [place] # (Auto) Platelet Estimate Increased A Anisocytosis 1+ A Potassium Chloride Glucose 135 H Calcium 8.5 L Albumin 2.7 L Globulin 3.9 H Albumin/Globulin Ratio 0.7 L Urine Protein Urine Ketones Urine Occult Blood Urine RBC Urine WBC Urine Mucus Urine Yeast (Budding) Urine Opiates Screen Meds: Medications Hydrocodone Bitart/Acetaminophen ([place]pson 7.5/325mg) 1 - 2 tab PO Q6H PRN; Protocol PRN Reason: Pain Last Admin: 10/09/19 02:26 Dose: 2 tab Documented by: Aspirin (Ecotrin) 325 mg PO DAILY [facility] Bupropion HCl (Wellbutrin Sr) 150 mg PO BID [facility] Last Admin: 10/08/19 20:47 Dose: 150 mg Documented by: Duloxetine HCl (Cymbalta) 30 mg PO BID [facility] Last Admin: 10/08/19 20:47 Dose: 30 mg Documented by: Enoxaparin Sodium (Lovenox) 40 mg SQ DAILY [facility] Etodolac (Lodine) 400 mg PO BID [facility] Last Admin: 10/08/19 20:49 Dose: Not Given Documented by: Finasteride (Proscar) 5 mg PO HS [facility] Last Admin: 10/08/19 20:48 Dose: 5 mg Documented by: Furosemide (Lasix) 30 mg PO QAM [facility] Sodium Chloride (Sodium Chloride 0.9%) 1,000 mls @ 125 mls/hr IV .Q8H [facility] Last Admin: 10/09/19 04:42 Dose: 125 mls/hr Documented by: Iron Carb/Multivit/Rangely/Folic Acid (Multivitamin W/Minerals) 1 tab PO DAILY [facility] Lactobacillus Rhamnosus (Culturelle) 1 cap PO TID [facility] Last Admin: 10/08/19 20:47 Dose: 1 cap Documented by: Magnesium Hydroxide (Milk Of Magnesia) 30 ml PO QDAY PRN PRN Reason: Constipation Metoprolol Tartrate (Lopressor) 12.5 mg PO BID [facility] Last Admin: 10/08/19 20:47 Dose: 12.5 mg Documented by: Oxybutynin Chloride (Ditropan) 15 mg PO BID [facility] Last Admin: 10/08/19 20:46 Dose: 15 mg Documented by: Oxcarbazepine 150 Mg (Tab) 150 dose PO BID [facility] Last Admin: 10/08/19 20:49 Dose: Not Given Documented by: Potassium Chloride (Kdur) 10 meq PO BID@0800,1200 [facility] Pramipexole Dihydrochloride (Mirapex) 0.5 mg PO QHS [facility] Last Admin: 10/08/19 20:47 Dose: 0.5 mg Documented by: Pramipexole Dihydrochloride (Mirapex) 0.125 mg PO DAILY [facility] Tamsulosin HCl (Flomax) 0.4 mg PO HS [facility] Last Admin: 10/08/19 20:46 Dose: 0.4 mg Documented by: A/P Assessment and plan (1) Encephalopathy acute: Status: Acute Narrative A/P Narrative: A: *Encephalopathy: Pt did have encephalopathy associated with his infection last weekend when hospitalized at [facility]. -Currently, according to staff who have [facility] with [facility] at [facility] and [facility] as he is at his baseline. -Behaviorally, at times he does become tired of being in hospitals, becomes withdrawn, refuses to answer or interact with care. Query whether that may have been part of his presentation on the evening of 10/06 at this hospital. -CT scan shows no evidence of acute change. -CT of the abdomen pelvis with some evidence of colitis, though he is currently being treated for C. difficile. -(abnormal urine analysis but does have a Culver in place). *C. difficile colitis: Currently under treatment. *Stage II sacral pressure ulcer: No evidence of tracking or deeper infection on CT of the abdomen pelvis. *Recent healthcare acquired pneumonia: Was treated with cefepime and metronidazole with vancomycin. He is on clindamycin presumably to continue treatment for his pneumonia. This may be worsening his diarrhea as he is currently being treated for C. difficile. It is possible that he did suffer some dehydration which may have affected his mental status. *Anemia, chronic: P: Reinstate home medications Monitor for mental status changes Continue fodixamicin Wound care Stopped antibiotics at this time. -CM for placement -ppx: lovenox Time Spent With Patient Time: Total time spent is greater than 50% in coordination of care (as documented) at patient's floor/unit and/or counseling patient:
[2019-10-09] MEDS ORDERED: POTASSIUM CHLORIDE 20 MEQ TABLET PO ONE (07:40)
[2019-10-09] MEDS ORDERED: ETODOLAC 400 MG TABLET PO PRN (07:41)
[2019-10-09] MEDS ORDERED: POTASSIUM CHLORIDE 10 MEQ TABLET PO SCH (08:00)
[2019-10-09] MEDS ORDERED: FUROSEMIDE 20 MG TABLET PO SCH (09:00)
[2019-10-09] MEDS ORDERED: PRAMIPEXOLE 0.25 MG TABLET PO SCH (09:00)
[2019-10-09] MEDS ORDERED: MULTIVIT,THER IRON,CA,FA & MIN 1 TABLET PO SCH (09:00)
[2019-10-09] MEDS ORDERED: ASPIRIN 325 MG ENTERIC COATED TABLET PO SCH (09:00)
[2019-10-09] MEDS ORDERED: ENOXAPARIN 40 MG/0.4 ML SYRINGE SQ SCH (09:00)
[2019-10-09] MEDS: LACTOBACILLUS 1 CAPSULE PO SCH ×2 (09:25→15:30)
[2019-10-09] MEDS: OXYBUTYNIN CHLORIDE 5 MG TABLET PO SCH (09:25)
[2019-10-09] MEDS: buPROPion 150 MG TAB.SR.12H PO SCH (09:25)
[2019-10-09] MEDS: DULoxetine 30 MG CAPSULE PO SCH (09:26)
[2019-10-09] MEDS: METOPROLOL TARTRATE 25 MG TABLET PO SCH (09:26)
[2019-10-09] MEDS: FIDAXOMICIN 200 MG TABLET PO SCH (09:30)
--- NOTE | 2019-10-09 10:58 | Discharge Summary ---
Discharge Provider Provider Patient information: Note initiated : 10/09/19 at 10:56 am Service Date, if different from initiated Date: [] Patient: Reji Stapleton 69 y/o M admitted on 10/08/19 for AMS. Chief Complaint: [] Date of admission: 10/08/19 03:56 Discharge date: 10/09/19 Primary care physician: Ramonita Fitch Consults: 10/08/19 02:32 Consult to Physician [CONS] Stat Comment: Consulting Provider: Lianne Kelley Reason For Exam: Physician to Consult 10/08/19 14:06 Consult to Physician [CONS] Routine Comment: Consulting Provider: Chin Otero Reason For Exam: right heel wound Discharge Meds Discharge Medications Home Medications multivitamins 1 tab PO QDAY 08/03/14 [History Confirmed 10/07/19 Last Taken 10/08/18] etodolac 400 mg tablet 400 mg PO BID 08/02/15 [History Confirmed 10/07/19 Last Taken 10/08/18] potassium chloride 10 mEq capsule,extended release 10 meq PO BID@08,12 cap 08/02/15 [History Confirmed 10/08/19 Last Taken 10/08/18] cholecalciferol (vitamin D3) 1,250 mcg (50,000 unit) tablet 50,000 unit PO .2XW tab 02/02/16 [History Confirmed 10/07/19 Last Taken 10/08/18] aspirin 325 mg tablet 325 mg PO DAILY 03/28/17 [History Confirmed 10/07/19 Last Taken 10/07/18] oxybutynin chloride 15 mg tablet,extended release 24 hr 15 mg PO BID #60 tab 04/01/18 [Rx Confirmed 10/07/19 Last Taken 10/08/18] pramipexole 0.125 mg tablet 0.125 mg PO DAILY tab 04/01/18 [History Confirmed 10/07/19 Last Taken 10/09/18 04:30] pramipexole 0.5 mg tablet 0.5 mg PO QHS 04/01/18 [History Confirmed 10/07/19 Last Taken 10/08/18] bupropion HCl 150 mg PO BID 10/10/18 [History Confirmed 10/07/19 Last Taken 10/09/18 04:30] finasteride 5 mg tablet 5 mg PO HS #90 tab 10/21/18 [Rx Confirmed 10/07/19 Last Taken Unknown] oxcarbazepine 150 mg PO BID 08/28/19 [History Confirmed 10/07/19 Last Taken Unknown] Felt-3 1 cap PO BID 10/07/19 [History Confirmed 10/07/19 Last Taken Unknown] hydrocodone-acetaminophen 1 - 2 tab PO Q6H PRN 10/07/19 [History Confirmed 10/07/19 Last Taken Unknown] magnesium hydroxide [Milk of Magnesia] 30 ml PO QDAY PRN 10/07/19 [History Confirmed 10/07/19 Last Taken Unknown] metoprolol tartrate 12.5 mg PO BID 10/07/19 [History Confirmed 10/07/19 Last Taken Unknown] tamsulosin 0.4 mg PO HS 10/07/19 [History Confirmed 10/07/19 Last Taken Unknown] Lactobacillus acidophilus 1 tab PO TID 10/08/19 [History Confirmed 10/08/19 Last Taken Unknown] duloxetine 30 mg PO BID 10/08/19 [History Confirmed 10/08/19 Last Taken Unknown] fidaxomicin 200 mg PO BID 10/08/19 [History Confirmed 10/08/19 Last Taken Unknown] furosemide 30 mg PO QAM 10/08/19 [History Confirmed 10/08/19 Last Taken Unknown] COURSE Hospital Course Hospital course: History of present illness: Mr. Stapleton is a 69 year old M with multiple past medical problems including diabetes, history of BKA, hypertension, BPH, sleep apnea, PAD who was and [facility] from 10/01-10/05 with sepsis from left lower lobe healthcare associated pneumonia. He had marked encephalopathy at that presentation. He had also recently been treated for C. difficile with fidaxomicin. He was initially treated with vancomycin, because he had MRSA positive PCR the nares and oropharynx, cefepime and metronidazole. After discharge on 10/05 to [facility], he was sent back to the ED that day for mental status changes, apparently because he was not taking oral medications (per nursing staff who cared for him at the [facility] ED). In speaking with 1 of the nurses who was working at the ED, who is now taking care of the patient at this facility today (Osman) the patient initially was not interactive, follow commands. After some physical stimulants, the patient became more alert, interactive, had an appetite, was talking with staff and appeared to be at his baseline. After discussing with patient's PCP of sent back to [facility]. On 10/06, the patient was sent [facility] ED for mental status changes. Patient was at times talkative and other times not. He was evaluated. He is found to have an elevated white count of 14,000. Is continuing to have loose stools (being treated for C. difficile). After several hours of evaluation, and discussion with his PCP, the patient was hospitalized early this morning for acute mental status changes. Later this morning when I see the patient, he is awake, is alert he is talkative and he is eating breakfast. According to his nurse, Osman, knows him from [facility], this appears to be the patient's baseline. Initially we were considering MRI to evaluate for stroke. He does carry a diagnosis of multiple sclerosis as well. However he now appears to be at baseline. As noted times the patient becomes frustrated with the medical system, refuses to interact or participate in his care. He also clearly has episodes of encephalopathy associated with acute infectious illness as well. 10/08 Appears tired but answering questions and appropriately. No overnight events or new complaints. Patient slept well. Diarrhea frequency decreasing. Leukocytosis resolved. A: *Encephalopathy: Pt did have encephalopathy associated with his infection last weekend when hospitalized at [facility]. -Currently, according to staff who have worked with him at both here and [facility] as he is at his baseline. -Behaviorally, at times he does become tired of being in hospitals, becomes withdrawn, refuses to answer or interact with care. Query whether that may have been part of his presentation on the evening of 10/06 at this hospital. -CT scan shows no evidence of acute change. -CT of the abdomen pelvis with some evidence of colitis, though he is currently being treated for C. difficile. -(abnormal urine analysis but does have a Culver in place). *C. difficile colitis: Currently under treatment. *Stage II sacral pressure ulcer: No evidence of tracking or deeper infection on CT of the abdomen pelvis. *Recent healthcare acquired pneumonia: Was treated with cefepime and metronidazole with vancomycin. He is on clindamycin presumably to continue treatment for his pneumonia. This may be worsening his diarrhea as he is currently being treated for C. difficile. It is possible that he did suffer some dehydration which may have affected his mental status. *Anemia, chronic: Discharge diagnosis: Altered mental status C. difficile colitis sacral pressure ulcer Secondary discharge diagnosis: Recent H CAP chronic anemia Time Spent with Patient Time attestation: Total time spent providing and/or coordinating discharge services: Time spent: Greater than 30 minutes EXAM Constitutional Vitals: Temp Pulse Resp BP Pulse Ox 97.3 F 50 L 18 147/67 92 10/09/19 08:33 10/09/19 08:33 10/09/19 08:33 10/09/19 08:33 10/09/19 08:33 Discharge Data Data Completed and Pending Labs on day of discharge: Labs from last 24 hours 10/09/19 10/09/19 10/08/19 04:51 04:51 20:39 WBC 8.9 RBC 3.49 L Hgb 9.5 L Hct 29.7 L MCV 85.1 MCH 27.2 MCHC 32.0 RDW 19.2 H Plt Count 345 MPV 8.6 Gran % 42.9 Lymph % (Auto) 42.4 [place] % (Auto) 9.5 Eos % (Auto) 4.5 Baso % (Auto) 0.7 Gran # 3.80 Lymph # (Auto) 3.76 [place] # (Auto) 0.84 Eos # (Auto) 0.40 Baso # (Auto) 0.06 Sodium 140 Potassium 3.2 L Chloride 108 Carbon Dioxide 22 Anion Gap 10.0 BUN 8 Creatinine 0.8 GFR Calculation 92 Glucose 98 Calcium 8.1 L Ur Opiates Confirm Not Reportable Ur Methadone Confirm Not Reportable Ur Barbiturate Confirm Not Reportable Urine PCP Confirm Not Reportable U Amphetamines Confirm Not Reportable U Benzodiazepine Confm Not Reportable Urine Cocaine Confirm Not Reportable U Cannabinoids Confirm Not Reportable Preliminary micro results at discharge 10/07/19 20:39 Urine Culture - Preliminary Urine - Culver 10/07/19 19:01 Blood Culture - Preliminary Blood 10/07/19 18:34 Blood Culture - Preliminary Blood Discharge Plan Patient/Caregiver Discharge Instructions Activity: increase activity as tolerated Diet: Consistent Carbohydrate Activity Restrictions/Additional Instructions: Follow up with wound healing center, see appointment scheduled for October 16 @ 10:00 am. Prescriptions: Continued finasteride 5 mg tablet 5 mg PO HS Qty: 90 RF: 5 multivitamins 1 tab PO QDAY RF: 0 bupropion HCl 150 MG tablet sustained-release 12 hr 150 mg PO BID RF: 0 oxcarbazepine 150 mg Tablet 150 mg PO BID RF: 0 magnesium hydroxide [Milk of Magnesia] 400 mg/5 mL Suspension 30 ml PO QDAY PRN (Reason: Constipation) RF: 0 hydrocodone-acetaminophen 7.5-325 mg Tablet 1 - 2 tab PO Q6H PRN (Reason: Pain) RF: 0 metoprolol tartrate 25 mg Tablet 12.5 mg PO BID RF: 0 Felt-3 350 mg-235 mg- 90 mg-597 mg Capsule,Delayed Release(Dr/Ec) 1 cap PO BID RF: 0 tamsulosin 0.4 mg capsule 0.4 mg PO HS RF: 0 duloxetine 30 mg Capsule,Delayed Release(Dr/Ec) 30 mg PO BID RF: 0 furosemide 20 mg Tablet 30 mg PO QAM RF: 0 fidaxomicin 200 mg Tablet 200 mg PO BID RF: 0 Lactobacillus acidophilus Tablet,Chewable 1 tab PO TID RF: 0 potassium chloride 10 mEq capsule, extended release 10 meq PO BID@08, RF: 0 etodolac 400 mg tablet 400 mg PO BID RF: 0 pramipexole 0.125 mg tablet 0.125 mg PO DAILY RF: 0 cholecalciferol (vitamin D3) 50,000 unit tablet 50,000 unit PO .2XW RF: 0 aspirin 325 mg tablet 325 mg PO DAILY RF: 0 pramipexole 0.5 mg tablet 0.5 mg PO QHS RF: 0 oxybutynin chloride 15 mg tablet extended release 24hr 15 mg PO BID Qty: 60 RF: 12 Discontinued bisacodyl 10 mg Suppository 10 mg RI ONCE PRN (Reason: Constipation) RF: 0 clindamycin HCl 150 mg Capsule 300 mg PO QID RF: 0 Follow Up Plan Follow up with: Ramonita Fitch MD [Primary Care Provider] - Chni Otero MD [Physician] - 10/17/19 10:00 am Patient Disposition: Xfer SNF Prognosis: Fair Rehab Potential: Fair I certify that the patient requires SNF services: Yes Overall status at discharge: patient is progressing back to baseline Discharge Orders: Discharge Order (Routine); Ordered 10/09/19 Ordered By: Rajinder Urrutia
[2019-10-09] MEDS ORDERED: POTASSIUM CHLORIDE 20 MEQ TABLET PO SCH (12:00)
--- NOTE | 2019-10-09 12:23 | General Surgery Consult Note ---
HPI Data of Consult Primary Care Provider: Ramonita Fitch Consult Narrative Patient Information: Note initiated : 10/09/19 at 12:14 pm Service Date, if different from initiated Date: [] Patient: Reji Stapleton 69 y/o M admitted on 10/08/19 for AMS. Chief Complaint: [] This patient is established at wound care center. I reviewed his [employer] EMR note pertaining to this admission. Saw him briefly in ICU and discussed wound care treatment plan with wound care nurse and ICU nursing staff. Detailed examination NOT done. Will await f/u at wound care center after planned discharge to SNF today. cc:: CC: Lianne Kelley PFSH PFSH All Active Problems (Updated 10/08/19 @ 02:39 by Keo Jose DO) Colitis due to Clostridium difficile (Acute) Encephalopathy acute (Acute) Altered mental status (Acute) Chronic wound of extremity (Acute) Decubitus ulcer of coccygeal region, stage 2 (Acute) Chronic narcotic use (Chronic) Foot ulcer, right (Acute) Cellulitis (Acute) S/P BKA (below knee amputation) (Acute) Impaired ambulation (Acute) Fever (Acute) Ulcer of right heel (Acute) Obesity, morbid (more than 100 lbs over ideal weight or BMI > 40) (Chronic) Dysmetabolic syndrome X (Chronic) Multiple sclerosis (Chronic) Hyperlipidemia (Chronic) Urge incontinence (Chronic) Tabes dorsalis (Chronic) Osteoarthrosis (Chronic) Neuropathy (Chronic) Neurogenic bladder (Chronic) Kidney stones (Chronic) Hearing loss (Chronic) Cannabis abuse (Chronic) BPH without obstruction/lower urinary tract symptoms (Chronic) Medical History (Updated 10/08/19 @ 02:39 by Keo Jose DO) BPH without obstruction/lower urinary tract symptoms (Chronic) Cannabis abuse (Chronic) Chronic narcotic use (Chronic) Dysmetabolic syndrome X (Chronic) Dyspnea (Inactive) Hearing loss (Chronic) Hemorrhoids, internal (Resolved) Hyperlipidemia (Chronic) Hypoxia (Resolved) Kidney stones (Chronic) Lipoma of skin and subcutaneous tissue of face (Resolved) Multiple sclerosis (Chronic) Neurogenic bladder (Chronic) Neuropathy (Chronic) Nocturia (Resolved) 02/09/2014 Obesity, morbid (more than 100 lbs over ideal weight or BMI > 40) (Chronic) Osteoarthrosis (Chronic) Shortness of breath (Resolved) Skin benign neoplasm (Resolved) Tabes dorsalis (Chronic) Ureteral calculus (Resolved) 02/09/2014 Urge incontinence (Chronic) 02/09/2014 Surgical History (Updated 10/10/18 @ 17:00 by Chin Otero MD) History of below knee amputation (Acute) Left History of foot surgery (Resolved) ankle repair History of hip surgery (Resolved) 10/04/2013 Hx of adenoidectomy (Resolved) Hx of cataract surgery (Acute) bilateral Hx of colonoscopy (Resolved) 2003 Hx of knee surgery (Resolved) Hx of tonsillectomy (Resolved) Family History father Secondary malignant neoplasm of bone Diabetes mellitus Carcinoma in situ of skin sister Malignant neoplasm of breast grandmother (paternal) Diabetes mellitus Social History (Updated 04/01/18 @ 13:36 by Red Georges MD) smoking status: Unknown if ever smoked alcohol intake frequency: holiday/special occasion only substance use type: does not use and marijuana MEDS/ALLERGIES Home Medications and Allergies Home Medications Medication Instructions Recorded Confirmed Type multivitamins 1 tab PO QDAY 08/03/14 10/07/19 History etodolac 400 mg tablet 400 mg PO BID 08/02/15 10/07/19 History potassium chloride 10 mEq 10 meq PO BID@08,12 cap 08/02/15 10/08/19 History capsule,extended release cholecalciferol (vitamin D3) 1,250 50,000 unit PO .2XW tab 02/02/16 10/07/19 History mcg (50,000 unit) tablet aspirin 325 mg tablet 325 mg PO DAILY 03/28/17 10/07/19 History oxybutynin chloride 15 mg 15 mg PO BID #60 tab 04/01/18 10/07/19 Rx tablet,extended release 24 hr pramipexole 0.125 mg tablet 0.125 mg PO DAILY tab 04/01/18 10/07/19 History pramipexole 0.5 mg tablet 0.5 mg PO QHS 04/01/18 10/07/19 History bupropion HCl 150 mg PO BID 10/10/18 10/07/19 History finasteride 5 mg tablet 5 mg PO HS #90 tab 10/21/18 10/07/19 Rx oxcarbazepine 150 mg PO BID 08/28/19 10/07/19 History Sunshine-3 1 cap PO BID 10/07/19 10/07/19 History hydrocodone-acetaminophen 1 - 2 tab PO Q6H PRN 10/07/19 10/07/19 History magnesium hydroxide [Milk of 30 ml PO QDAY PRN 10/07/19 10/07/19 History Magnesia] metoprolol tartrate 12.5 mg PO BID 10/07/19 10/07/19 History tamsulosin 0.4 mg PO HS 10/07/19 10/07/19 History Lactobacillus acidophilus 1 tab PO TID 10/08/19 10/08/19 History duloxetine 30 mg PO BID 10/08/19 10/08/19 History fidaxomicin 200 mg PO BID 10/08/19 10/08/19 History furosemide 30 mg PO QAM 10/08/19 10/08/19 History Allergies Allergy/AdvReac Type Severity Reaction Status Date / Time Cefprozil [From Cefzil] AdvReac Mild Diarrhea Verified 10/07/19 18:25 pregabalin [From Lyrica] AdvReac Mild swelling Verified 10/07/19 18:25 of hands and feet sertraline [From Zoloft] AdvReac Mild swelling Verified 10/07/19 18:25 of hands and feet Physical Examination Vital Signs Vital signs: Temp Pulse Resp BP Pulse Ox 97.3 F 50 L 18 147/67 92 10/09/19 08:33 10/09/19 08:33 10/09/19 08:33 10/09/19 08:33 10/09/19 08:33 Results Labs Result diagrams: 10/09/19 04:51 10/09/19 04:51 Labs: Abnormal lab results 10/09/19 10/09/19 Range/Units 04:51 04:51 RBC 3.49 L (4.63-6.08) M/mcL Hgb 9.5 L (13.7-17.5) g/dL Hct 29.7 L (40.1-51.0) % RDW 19.2 H (11.5-14.5) % Potassium 3.2 L (3.3-5.1) mmol/L Calcium 8.1 L (8.6-10.4) mg/dl Diabetes panel 10/09/19 Range/Units 04:51 Sodium 140 (133-145) mmol/L Potassium 3.2 L (3.3-5.1) mmol/L Chloride 108 (96-108) mmol/L Carbon Dioxide 22 (22-30) mmol/L BUN 8 (8-23) mg/dl Creatinine 0.8 (0.7-1.2) mg/dl Glucose 98 (70-105) mg/dL Calcium 8.1 L (8.6-10.4) mg/dl Calcium panel 10/09/19 Range/Units 04:51 Calcium 8.1 L (8.6-10.4) mg/dl Pituitary panel 10/09/19 Range/Units 04:51 Sodium 140 (133-145) mmol/L Potassium 3.2 L (3.3-5.1) mmol/L Chloride 108 (96-108) mmol/L Carbon Dioxide 22 (22-30) mmol/L BUN 8 (8-23) mg/dl Creatinine 0.8 (0.7-1.2) mg/dl Glucose 98 (70-105) mg/dL Calcium 8.1 L (8.6-10.4) mg/dl Adrenal panel 10/09/19 Range/Units 04:51 Sodium 140 (133-145) mmol/L Potassium 3.2 L (3.3-5.1) mmol/L Chloride 108 (96-108) mmol/L Carbon Dioxide 22 (22-30) mmol/L BUN 8 (8-23) mg/dl Creatinine 0.8 (0.7-1.2) mg/dl Glucose 98 (70-105) mg/dL Calcium 8.1 L (8.6-10.4) mg/dl All other labs normal. A/P Narrative A/P Narrative: Assessment: Bed confinement. AMS improved. Other comorbid medical conditions are unchanged and stable. S/P LEFT BKA. RIGHT foot plantar neuropathic pressure ulcer Stage 3 Multiple sclerosis, NON diabetes peripheral neuropathy. Bed confinement. Stage 2 Sacral pressure ulcer . Plan: Wound care as ordered by Wound care nurse. After discharge f/u at wound clinic for continuity of wound care. Time Spent With Patient Time: Total time spent is greater than 50% in coordination of care (as documented) at patient's floor/unit and/or counseling patient: Total time spent with greater than 50% in coordination of care (as documented) at patient's floor/unit and/or counseling patient:: less than 15 minutes
[2019-10-16 13:06] LABS: Opiate Confirmation POSITIVE (N)
== END 2019-10-09 17:00 ==
LOC: ICU 18:22 → ED 18:22 → ICU 10-08 03:56
PROVIDERS: ADMIT Internal Medicine; ATTEND Internal Medicine